=== PATIENT | male | born 1940 | race Caucasian/White ===

== ENCOUNTER 2020-08-06 09:09 | Outpatient (RCR) | payer MEDICARE, SELFPAY | END 2020-08-22 23:59 | disposition home or self-care (01) | LOC: WOUND 09:09 | PROVIDERS: Family Provider Family Medicine; Visit Provider Nurse Practitioner Family | DX: L89.312 Pressure ulcer of right buttock, stage 2 (principal); L89.322 Pressure ulcer of left buttock, stage 2 | CPT/HCPCS: 11042; 11045; 87070; 87077; 87176; 87186; 87205; 99213; G0463 ==

== ENCOUNTER 2020-08-13 09:19 | Outpatient (CLI) | payer MEDICARE, SELFPAY | END 2020-08-13 09:20 | disposition home or self-care (01) | LOC: WOUND 09:21 | PROVIDERS: Family Provider Family Medicine; Visit Provider Nurse Practitioner Family | DX: L89.312 Pressure ulcer of right buttock, stage 2 (principal); L89.322 Pressure ulcer of left buttock, stage 2 | CPT/HCPCS: 11042; 11045 ==

== ENCOUNTER 2020-09-28 15:38 | Outpatient (CLI) | payer MEDICARE, SELFPAY ==
[2020-09-28 19:04] LABS: Add Urine Microscopic? YES; Bilirubin Urine Neg (Negative); Blood Urine 2+ (Negative); Glucose Urine UA Norm (Normal); Ketones Urine Negative (Negative); Leukocyte Esterase Urine 2+ (Negative); Nitrate Urine Positive (Negative); Protein Urine Neg (Negative); Specific Gravity, Urine 1.015 (1.005-1.030); Urine Appearance Cloudy (CLEAR); Urine Color Yellow (Yellow); Urobilinogen Urine Norm (Negative); pH Urine 7 (5-7)
[2020-09-28 19:06] LABS: Bacteria Urine 4+ /hpf; Squamous Epithelial Cell Urine 0-4 /hpf (0-5); WBC Urine 25-40 /hpf (0-5)
[2020-09-28 19:07] LABS: Add Urine Culture? Yes; Amorphous Sediment Urine 1+ /hpf
== END 2020-09-28 15:39 | disposition home or self-care (01) ==
PROVIDERS: Visit Provider Family Medicine
DX: N39.0 Urinary tract infection, site not specified (principal)
CPT/HCPCS: 81001; 87077; 87086; 87186

== ENCOUNTER 2021-05-27 15:41 | Emergency (ER) | payer MEDICARE, SELFPAY ==
[2021-05-27 15:49] VITALS: BP 145/64; PULSE 89; RESP 16; TEMP 36.6; O2SAT 96
[2021-05-27 15:52] VITALS: BP 145/64; PULSE 85; RESP 16; TEMP 36.7; O2SAT 98; BMI 29.0
--- NOTE | 2021-05-27 15:57 | XRR_ITS ---
PROCEDURE INFORMATION: Exam: XR Left Hip Exam date and time: 05/27/2021 3:57 PM Age: 80 years old Clinical indication: Pain and injury or trauma; Fall; Blunt trauma (contusions or hematomas); Hip pain; Left hip; Additional info: Pain/fall TECHNIQUE: Imaging protocol: XR Left hip. Views: 2 or 3 views hip with pelvis when performed. COMPARISON: No relevant prior studies available. FINDINGS: Bones/joints: Mild osteoarthritis of the hip. Soft tissues: Unremarkable. XR/XR hip LT 2-3V wo/w pel* [id number] IMPRESSION: Negative for fracture or dislocation
[2021-05-27 15:59] VITALS: BP 145/64; PULSE 84; RESP 16; O2SAT 98
--- NOTE | 2021-05-27 16:01 | W.ED.FALL ---
Documented by User: Philip Warner DO 05/31/21 06:22 HPI - Fall General: Chief Complaint: Fall Stated Complaint: FALL, BACK PAIN, KNEE PAIN Time Seen by Provider: 05/27/21 15:45 History of Present Illness: HPI Narrative: 80-year-old female presents to the emergency room with complaint of a fall. She was at home and try to get up out of a chair did not really have enough momentum and started to sit back down in the chair but the chair had wheels and then rolled out partially from underneath her she caught it a little bit on the buttocks as she sat down which effectively just because this is chair to shoot out of the way and she fell hard onto her buttocks. She is complaining of pain in her left hip but she was down for about 3-1/2 hours she did not have access to a phone Lifeline eventually she did get to a phone and called for help EMS brought her in she denies striking her head or losing consciousness. MD complaint: fall Onset (ago): hour(s) Fall from: chair Fall witnessed: no Place fall occurred: home Loss of consciousness: None Prolonged down time: yes Symptoms prior to fall: none Context: tripped/slipped (Rolling chair slipped out from behind the patient as she tried to sit down on) Location of injury - extremities: Left: thigh Severity: moderate Quality: sharp Associated symptoms-after fall: Denies abdominal pain, chest pain, confusion, difficulty walking, headache(s), hematuria, lightheadedness, neck pain, numbness, short of breath, vertigo or weakness Review of Systems Const: Denies: fever(s), chills, body aches, change in appetite, fatigue or malaise ENMT: Denies: throat pain, ear or mastoid pain, nasal discharge or nasal congestion Card: Denies: chest pain or lightheadedness Resp: Denies: dyspnea, productive cough or non-productive cough GI: Denies: abdominal pain Musc: Denies: neck pain Skin/Breast: Denies: rash or pruritus Neuro: Denies: headache(s), difficulty walking, vertigo or confusion PFS ED PFSH: Medical History History of broken collarbone History of tibial fracture Urgency incontinence Surgical History History of foot surgery History of hemorrhoidectomy History of tonsillectomy and adenoidectomy Family History Father , IN HIS LATE 40'S Stroke Heart attack Mother , UNKNOWN AGE Cancer COLON Social History Alcohol intake: current Alcohol intake frequency: holidays/special occasions only Marital status: / Current occupational status: disabled History of recent travel: No Physical Exam Const: COMMON NORMALS: no acute distress GENERAL APPEARANCE: cooperative and comfortable ORIENTATION/CONSCIOUSNESS: Yes awake, Yes oriented to person, Yes oriented to place and Yes oriented to time HENMT: COMMON NORMALS: normocephalic, atraumatic and hearing grossly normal bilaterally HEAD & SCALP: normocephalic and atraumatic Neck/C-Spine: COMMON NORMALS: no JVD Resp: COMMON NORMALS: normal respiratory effort, No retractions, No use of accessory muscles and clear to auscultation bilaterally AUSCULTATION: clear to auscultation bilaterally Cardio: COMMON NORMALS: no JVD, regular rate, regular rhythm and No murmurs present (Cardio) RATE: regular rate RHYTHM: regular rhythm GI: COMMON NORMALS: Soft to palpation and No hepatosplenomegaly present AUSCULTATION: Yes normoactive bowel sounds PALPATION: Yes Soft to palpation, No Tenderness to palpation present (GI), No Guarding due to palpation present (GI) and Yes No hepatosplenomegaly present Extremity: COMMON NORMALS: normal to inspection, capillary refill normal, no clubbing, cyanosis or edema and no calf tenderness Neuro: SENSORIUM/ORIENTATION: Yes oriented to person, Yes oriented to place and Yes oriented to time Course Vital Signs: Vital signs: Vital Signs Temperature 98.0 F 05/27/21 15:52 Pulse Rate 68 05/28/21 08:46 Respiratory Rate 18 05/28/21 08:46 Blood Pressure 156/73 05/28/21 08:46 Pulse Oximetry 94 05/28/21 08:46 MDM - Fall MDM Narrative: Medical decision making narrative: Lab imaging and EKGs reviewed. Patient with mechanical fall there is no acute fracture. She does have elevated AST and some moderate thrombocytopenia. She does also have an acute UTI. We will go ahead and discharge her home is given Rocephin here started on Macrobid. No indication for admission at this time. Follow-up with your primary care doctor. Lab Data: Labs: Lab Results 05/27/21 05/27/21 05/27/21 16:23 16:35 16:35 WBC 7.5 10^3/uL 10^3/ uL (4.0-10.0) RBC 3.58 10^6/uL L 10 ^6/uL (4.1-5.3) Hgb 12.3 g/dL g/dL (11.7-16.6) Hct 37.2 % L % (42.0-52.0) MCV 103.9 fl H fl (80-94) MCH 34.4 pg H pg (28.0-34.0) MCHC 33.1 g/dL g/dL (30.0-36.0) RDW 14.8 % % (12.1-15.1) Plt Count 108 10^3/cmm L 10 ^3/cmm (130-400) MPV 9.7 fL fL (7.4-10.4) Neut % (Auto) 76.7 % % Lymph % (Auto) 8.3 % % Mcdonough % (Auto) 11.3 % % Eos % (Auto) 2.6 % % Baso % (Auto) 0.3 % % Neut # (Auto) 5.72 10^3/uL 10^3 /uL (1.8-7.7) Lymph # (Auto) 0.6 10^3/uL L 10^ 3/uL (0.8-4.8) Mcdonough # (Auto) 0.8 10^3/uL 10^3/ uL (0.2-0.9) Eos # (Auto) 0.2 10^3/uL 10^3/ uL (0.0-0.8) Baso # (Auto) 0.0 10^3/uL 10^3/ uL (0.0-0.1) Nucleated RBC % (a uto) 0 % % Nucleated RBCs # 0.0 /100WBC /100W BC Sodium 139 mmol/L mmol/L (136-145) Potassium 3.6 mmol/L mmol/L (3.5-5.1) Chloride 106 mmol/L mmol/L (98-107) Carbon Dioxide 22 mmol/L mmol/L (22-29) Anion Gap 14.6 (5-19) BUN 13 mg/dL mg/dL (8-23) Creatinine 0.4 mg/dL L mg/dL (0.7-1.2) GFR Calculation Not Reportable Glucose 122 mg/dL H mg/dL (65-115) Calculated Osmolal ity 289 mOsm/kg mOsm/ kg (285-295) Calcium 8.3 mg/dL L mg/dL (8.5-10.5) Total Bilirubin 1.7 mg/dL H mg/dL (0.15-1.2) AST 42 U/L H U/L (0-40) ALT 18 U/L U/L (0-41) Alkaline Phosphata se 151 IU/L H IU/L (40-130) Total Protein 4.6 g/dL L g/dL (6.6-8.7) Albumin 3.0 g/dL L g/dL (3.5-5.2) Globulin 1.6 g/dL g/dL (1.3-4.6) Lipase Urine Color Yellow (Yellow) Urine Appearance Clear (CLEAR) Urine pH 7 (5-7) Ur Specific Gravit y 1.020 (1.005-1.030) Urine Protein Neg (Negative) Urine Glucose (UA) Norm (Normal) Urine Ketones Negative (Negative) Urine Blood Neg (Negative) Urine Nitrate Positive H (Negative) Urine Bilirubin Neg (Negative) Urine Urobilinogen Norm mg/dL mg/dL (Negative) Ur Leukocyte Aniyah ase Trace H (Negative) Urine RBC 0-4 /hpf H /hpf (0-2) Urine WBC 15-25 /hpf H /hpf (0-5) Ur Squamous Epith Cells None /hpf /hpf (0-5) Amorphous Sediment Not Reportable Urine Bacteria 3+ /hpf H /hpf (NONE) 05/27/21 16:35 WBC RBC Hgb Hct MCV MCH MCHC RDW Plt Count MPV Neut % (Auto) Lymph % (Auto) Mcdonough % (Auto) Eos % (Auto) Baso % (Auto) Neut # (Auto) Lymph # (Auto) Mcdonough # (Auto) Eos # (Auto) Baso # (Auto) Nucleated RBC % (a uto) Nucleated RBCs # Sodium Potassium Chloride Carbon Dioxide Anion Gap BUN Creatinine GFR Calculation Glucose Calculated Osmolal ity Calcium Total Bilirubin AST ALT Alkaline Phosphata se Total Protein Albumin Globulin Lipase 19 U/L U/L (13-60) Urine Color Urine Appearance Urine pH Ur Specific Gravit y Urine Protein Urine Glucose (UA) Urine Ketones Urine Blood Urine Nitrate Urine Bilirubin Urine Urobilinogen Ur Leukocyte Aniyah ase Urine RBC Urine WBC Ur Squamous Epith Cells Amorphous Sediment Urine Bacteria Discharge Plan Discharge Patient Disposition: Home Clinical Impression: Fall, Thrombocytopenia, Elevated AST (SGOT), Elevated bilirubin, Acute UTI Condition: Stable Prescriptions: New nitrofurantoin macrocrystal 100 mg capsule 100 mg PO BID 7 Days Qty: 14 RF: 0 No Action ketoconazole 2 % cream 1 applic topical DAILY RF: 0 cetirizine [Zyrtec] 10 mg tablet 10 mg PO DAILY PRN (Reason: Allergy Symptoms) RF: 0 ibuprofen [Advil] 200 mg tablet 200 mg PO BID RF: 0 multivitamin Tablet 1 tab PO DAILY RF: 0 ascorbic acid (vitamin C) 1,000 mg tablet 1 g PO DAILY RF: 0 magnesium oxide 400 mg (241.3 mg magnesium) tablet 400 mg PO DAILY RF: 0 naproxen sodium [Aleve] 220 mg tablet 220 mg PO BID PRN (Reason: Pain) RF: 0 Lactobacillus acidophilus [Acidophilus] Capsule 10 mg PO DAILY RF: 0 famotidine 20 mg tablet 20 mg PO DAILY RF: 0 oxybutynin chloride 10 mg tablet extended release 24hr 10 mg PO DAILY Qty: 30 RF: 6 betamethasone dipropionate 0.05 % cream 1 applic topical DAILY PRN (Reason: Rash) RF: 0 aspirin [Adult Aspirin Regimen] 81 mg tablet,delayed release (DR/EC) 81 mg PO DAILY RF: 0 pentoxifylline 400 mg tablet extended release 400 mg PO BID RF: 0 hydrochlorothiazide 25 mg tablet 25 mg PO DAILY RF: 0 Discharge Orders: Discharge ED (Routine); Ordered 05/27/21 Ordered By: Eder Whitehead Referrals: Emory Vaughan MD [Primary Care Provider] - Discharge Diet: Usual diet Discharge Activity: Resume usual activity Patient Instructions: Fall Prevention for Older Adults (ED), Contusion in Adults (ED), Urinary Tract Infection in Older Adults (ED), Opioid Safety Activity Restrictions/Additional Instructions: Thank you for visiting the emergency department. You were seen and evaluated after fall. No acute fracture was identified. Your pain is likely related to bruising and strain. You were incidentally noted to have a urinary tract infection which will be treated with antibiotics. Please follow-up with your primary care provider. Return to the emergency department for uncontrolled pain, inability to ambulate, repeated falls, chest pain, shortness of breath, or anything else that you are concerned about and feel needs emergency department evaluation. Sign Out Sign Out Data: Patient Sign Out occurred on 05/27/21 at 18:10. Patient's care was discussed, and care was transferred from to Eder Whitehead MD. Post-Handoff Eval: Patient care handoff received from Dr. Warner pending completion of evaluation. Labs reviewed, no significant abnormality to explain patient's symptoms. Urinalysis concerning for urinary tract infection which will be treated. Imaging negative for acute fracture. I discussed the results of ED evaluation with the patient. Challenging situation as the patient ambulates with a walker and lives at home alone. She was able to ambulate with a walker however did require some assistance. Subsequently she reported being unable to ambulate. staff physical therapy assistant discussed SNF placement with the patient which she seemed opposed to. The patient does not have a diagnosis that would warrant 3 midnights for inpatient to SNF placement. fitting room supervisor involved in the case. Given that the patient apparently does not have a ride home and family is unavailable she will be kept in the emergency department pending ride home and evaluation/assistance from case management/social work. Eder Whitehead MD Emergency Medicine Coding Level of Care Code ED Humanities Department Chair for Chg Fwd Exam Detailed Documented by User: Eder Whitehead MD 05/30/21 21:35 HPI - Fall General: Chief Complaint: Fall Stated Complaint: FALL, BACK PAIN, KNEE PAIN Time Seen by Provider: 05/27/21 15:45 PFSH ED PFSH: Medical History History of broken collarbone History of tibial fracture Urgency incontinence Surgical History History of foot surgery History of hemorrhoidectomy History of tonsillectomy and adenoidectomy Family History Father , IN HIS LATE 40'S Stroke Heart attack Mother , UNKNOWN AGE Cancer COLON Social History Alcohol intake: current Alcohol intake frequency: holidays/special occasions only Marital status: / Current occupational status: disabled History of recent travel: No Course Vital Signs: Vital signs: Vital Signs Temperature 98.0 F 05/27/21 15:52 Pulse Rate 68 05/28/21 08:46 Respiratory Rate 18 05/28/21 08:46 Blood Pressure 156/73 05/28/21 08:46 Pulse Oximetry 94 05/28/21 08:46 MDM - Fall Lab Data: Labs: Lab Results 05/27/21 05/27/21 05/27/21 16:23 16:35 16:35 WBC 7.5 10^3/uL 10^3/ uL (4.0-10.0) RBC 3.58 10^6/uL L 10 ^6/uL (4.1-5.3) Hgb 12.3 g/dL g/dL (11.7-16.6) Hct 37.2 % L % (42.0-52.0) MCV 103.9 fl H fl (80-94) MCH 34.4 pg H pg (28.0-34.0) MCHC 33.1 g/dL g/dL (30.0-36.0) RDW 14.8 % % (12.1-15.1) Plt Count 108 10^3/cmm L 10 ^3/cmm (130-400) MPV 9.7 fL fL (7.4-10.4) Neut % (Auto) 76.7 % % Lymph % (Auto) 8.3 % % Mcdonough % (Auto) 11.3 % % Eos % (Auto) 2.6 % % Baso % (Auto) 0.3 % % Neut # (Auto) 5.72 10^3/uL 10^3 /uL (1.8-7.7) Lymph # (Auto) 0.6 10^3/uL L 10^ 3/uL (0.8-4.8) Mcdonough # (Auto) 0.8 10^3/uL 10^3/ uL (0.2-0.9) Eos # (Auto) 0.2 10^3/uL 10^3/ uL (0.0-0.8) Baso # (Auto) 0.0 10^3/uL 10^3/ uL (0.0-0.1) Nucleated RBC % (a uto) 0 % % Nucleated RBCs # 0.0 /100WBC /100W BC Sodium 139 mmol/L mmol/L (136-145) Potassium 3.6 mmol/L mmol/L (3.5-5.1) Chloride 106 mmol/L mmol/L (98-107) Carbon Dioxide 22 mmol/L mmol/L (22-29) Anion Gap 14.6 (5-19) BUN 13 mg/dL mg/dL (8-23) Creatinine 0.4 mg/dL L mg/dL (0.7-1.2) GFR Calculation Not Reportable Glucose 122 mg/dL H mg/dL (65-115) Calculated Osmolal ity 289 mOsm/kg mOsm/ kg (285-295) Calcium 8.3 mg/dL L mg/dL (8.5-10.5) Total Bilirubin 1.7 mg/dL H mg/dL (0.15-1.2) AST 42 U/L H U/L (0-40) ALT 18 U/L U/L (0-41) Alkaline Phosphata se 151 IU/L H IU/L (40-130) Total Protein 4.6 g/dL L g/dL (6.6-8.7) Albumin 3.0 g/dL L g/dL (3.5-5.2) Globulin 1.6 g/dL g/dL (1.3-4.6) Lipase Urine Color Yellow (Yellow) Urine Appearance Clear (CLEAR) Urine pH 7 (5-7) Ur Specific Gravit y 1.020 (1.005-1.030) Urine Protein Neg (Negative) Urine Glucose (UA) Norm (Normal) Urine Ketones Negative (Negative) Urine Blood Neg (Negative) Urine Nitrate Positive H (Negative) Urine Bilirubin Neg (Negative) Urine Urobilinogen Norm mg/dL mg/dL (Negative) Ur Leukocyte Aniyah ase Trace H (Negative) Urine RBC 0-4 /hpf H /hpf (0-2) Urine WBC 15-25 /hpf H /hpf (0-5) Ur Squamous Epith Cells None /hpf /hpf (0-5) Amorphous Sediment Not Reportable Urine Bacteria 3+ /hpf H /hpf (NONE) 05/27/21 16:35 WBC RBC Hgb Hct MCV MCH MCHC RDW Plt Count MPV Neut % (Auto) Lymph % (Auto) Mcdonough % (Auto) Eos % (Auto) Baso % (Auto) Neut # (Auto) Lymph # (Auto) Mcdonough # (Auto) Eos # (Auto) Baso # (Auto) Nucleated RBC % (a uto) Nucleated RBCs # Sodium Potassium Chloride Carbon Dioxide Anion Gap BUN Creatinine GFR Calculation Glucose Calculated Osmolal ity Calcium Total Bilirubin AST ALT Alkaline Phosphata se Total Protein Albumin Globulin Lipase 19 U/L U/L (13-60) Urine Color Urine Appearance Urine pH Ur Specific Gravit y Urine Protein Urine Glucose (UA) Urine Ketones Urine Blood Urine Nitrate Urine Bilirubin Urine Urobilinogen Ur Leukocyte Aniyah ase Urine RBC Urine WBC Ur Squamous Epith Cells Amorphous Sediment Urine Bacteria Discharge Plan Discharge Patient Disposition: Home Clinical Impression: Fall, Thrombocytopenia, Elevated AST (SGOT), Elevated bilirubin, Acute UTI Condition: Stable Prescriptions: New nitrofurantoin macrocrystal 100 mg capsule 100 mg PO BID 7 Days Qty: 14 RF: 0 No Action ketoconazole 2 % cream 1 applic topical DAILY RF: 0 cetirizine [Zyrtec] 10 mg tablet 10 mg PO DAILY PRN (Reason: Allergy Symptoms) RF: 0 ibuprofen [Advil] 200 mg tablet 200 mg PO BID RF: 0 multivitamin Tablet 1 tab PO DAILY RF: 0 ascorbic acid (vitamin C) 1,000 mg tablet 1 g PO DAILY RF: 0 magnesium oxide 400 mg (241.3 mg magnesium) tablet 400 mg PO DAILY RF: 0 naproxen sodium [Aleve] 220 mg tablet 220 mg PO BID PRN (Reason: Pain) RF: 0 Lactobacillus acidophilus [Acidophilus] Capsule 10 mg PO DAILY RF: 0 famotidine 20 mg tablet 20 mg PO DAILY RF: 0 oxybutynin chloride 10 mg tablet extended release 24hr 10 mg PO DAILY Qty: 30 RF: 6 betamethasone dipropionate 0.05 % cream 1 applic topical DAILY PRN (Reason: Rash) RF: 0 aspirin [Adult Aspirin Regimen] 81 mg tablet,delayed release (DR/EC) 81 mg PO DAILY RF: 0 pentoxifylline 400 mg tablet extended release 400 mg PO BID RF: 0 hydrochlorothiazide 25 mg tablet 25 mg PO DAILY RF: 0 Discharge Orders: Discharge ED (Routine); Ordered 05/27/21 Ordered By: Eder Whitehead Referrals: Emory aVughan MD [Primary Care Provider] - Discharge Diet: Usual diet Discharge Activity: Resume usual activity Patient Instructions: Fall Prevention for Older Adults (ED), Contusion in Adults (ED), Urinary Tract Infection in Older Adults (ED), Opioid Safety Activity Restrictions/Additional Instructions: Thank you for visiting the emergency department. You were seen and evaluated after fall. No acute fracture was identified. Your pain is likely related to bruising and strain. You were incidentally noted to have a urinary tract infection which will be treated with antibiotics. Please follow-up with your primary care provider. Return to the emergency department for uncontrolled pain, inability to ambulate, repeated falls, chest pain, shortness of breath, or anything else that you are concerned about and feel needs emergency department evaluation. Sign Out Sign Out Data: Patient Sign Out occurred on 05/27/21 at 18:10. Patient's care was discussed, and care was transferred from to Eder Whitehead MD. Post-Handoff Eval: Patient care handoff received from Dr. Warner pending completion of evaluation. Labs reviewed, no significant abnormality to explain patient's symptoms. Urinalysis concerning for urinary tract infection which will be treated. Imaging negative for acute fracture. I discussed the results of ED evaluation with the patient. Challenging situation as the patient ambulates with a walker and lives at home alone. She was able to ambulate with a walker however did require some assistance. Subsequently she reported being unable to ambulate. staff physical therapy assistant discussed SNF placement with the patient which she seemed opposed to. The patient does not have a diagnosis that would warrant 3 midnights for inpatient to SNF placement. fitting room supervisor involved in the case. Given that the patient apparently does not have a ride home and family is unavailable she will be kept in the emergency department pending ride home and evaluation/assistance from case management/social work. Eder Whitehead MD Emergency Medicine Coding Level of Care Code ED Humanities Department Chair for Chg Fwd Exam Detailed
[2021-05-27] MEDS: ondansetron 2 mg/ML SDV 2 mL 4 MG IVP (16:12)
[2021-05-27] MEDS: morphine 4 mg/mL SDV 1 mL IVP (16:12)
--- NOTE | 2021-05-27 16:48 | CTR_ITS ---
PROCEDURE INFORMATION: Exam: CT Left Lower Extremity Without Contrast, Hip Exam date and time: 05/27/2021 4:48 PM Age: 80 years old Clinical indication: Injury or trauma; Fall; Blunt trauma; Hip; Left; Additional info: Hip pain after fall TECHNIQUE: Imaging protocol: CT of the Left lower extremity without contrast was performed. Exam focused on the hip. Radiation optimization: All CT scans at this facility use at least one of these dose optimization techniques: automated exposure control; mA and/or kV adjustment per patient size (includes targeted exams where dose is matched to clinical indication); or iterative reconstruction. COMPARISON: CR XR hip LT 2-3V wo/w pel* [id number] 05/27/2021 4:18 PM RADIATION DOSE METRICS: Total DLP (mGy-cm): 2414.33 FINDINGS: Tubes, catheters and devices: Iqbal catheter in the urinary bladder with some air presumed iatrogenic. Bones/joints: Normal. No acute fracture or dislocation. Soft tissues: Normal. Bowel: Diverticulosis without diverticulitis. CT/CT hip LT wo con* [id number] IMPRESSION: 1. Negative for fracture or dislocation. 2. Iqbal catheter in the urinary bladder with some air presumed iatrogenic. 3. Diverticulosis without diverticulitis.
--- NOTE | 2021-05-27 16:49 | XRR_ITS ---
PROCEDURE INFORMATION: Exam: XR Left Knee Exam date and time: 05/27/2021 4:49 PM Age: 80 years old Clinical indication: Pain; Knee; Left TECHNIQUE: Imaging protocol: XR Left knee. Views: 3 views. COMPARISON: No relevant prior studies available. FINDINGS: Bones/joints: Severe tricompartmental osteoarthritis of the knee. Soft tissues: Scattered vascular calcifications. XR/XR knee LT 3V* [id number] IMPRESSION: 1. Severe tricompartmental osteoarthritis of the knee. 2. Scattered vascular calcifications.
[2021-05-27 16:57] LABS: Basophils % 0.3 %; Eosinophils # 0.2 10^3/uL (0.0-0.8); Eosinophils % 2.6 %; Hematocrit 37.2 % (42.0-52.0); Hemoglobin 12.3 g/dL (11.7-16.6); Lymphocytes # 0.6 10^3/uL (0.8-4.8); Lymphocytes % 8.3 %; Mean Corpuscular HGB Conc 33.1 g/dL (30.0-36.0); Mean Corpuscular Hemoglobin 34.4 pg (28.0-34.0); Mean Corpuscular Volume 103.9 fl (80-94); Mean Platelet Volume 9.7 fL (7.4-10.4); Monocytes # 0.8 10^3/uL (0.2-0.9); Monocytes % 11.3 %; Neutrophils # 5.72 10^3/uL (1.8-7.7); Neutrophils % 76.7 %; Nucleated Red Blood Cells % 0 %; Platelet Count 108 10^3/cmm (130-400); Red Blood Count 3.58 10^6/uL (4.1-5.3); Red Cell Distribution Width 14.8 % (12.1-15.1); White Blood Count 7.5 10^3/uL (4.0-10.0)
[2021-05-27 17:17] LABS: Alanine Aminotransferase 18 U/L (0-41); Alkaline Phosphatase 151 IU/L (40-130); Blood Urea Nitrogen 13 mg/dL (8-23); Calcium 8.3 mg/dL (8.5-10.5); Carbon Dioxide 22 mmol/L (22-29); Chloride 106 mmol/L (98-107); Globulin 1.6 g/dL (1.3-4.6); Glucose 122 mg/dL (65-115); Osmolality Calculated 289 mOsm/kg (285-295); Sodium 139 mmol/L (136-145); Total Bilirubin 1.7 mg/dL (0.15-1.2); Total Protein 4.6 g/dL (6.6-8.7)
[2021-05-27 17:18] LABS: Anion Gap 14.6 (5-19); Aspartate Amino Transferase 42 U/L (0-40); Potassium 3.6 mmol/L (3.5-5.1)
[2021-05-27 17:47] LABS: Add Urine Microscopic? YES; Bilirubin Urine Neg (Negative); Blood Urine Neg (Negative); Glucose Urine UA Norm (Normal); Ketones Urine Negative (Negative); Leukocyte Esterase Urine Trace (Negative); Nitrate Urine Positive (Negative); Protein Urine Neg (Negative); Urine Appearance Clear (CLEAR); Urine Color Yellow (Yellow); Urobilinogen Urine Norm (Negative); pH Urine 7 (5-7)
--- NOTE | 2021-05-27 17:50 | XRR_ITS ---
PROCEDURE INFORMATION: Exam: XR Pelvis Exam date and time: 05/27/2021 5:50 PM Age: 80 years old Clinical indication: Pelvic pain; Additional info: Pain after fall TECHNIQUE: Imaging protocol: XR pelvis. Views: 1 or 2 view. COMPARISON: CR XR hip LT 2-3V wo/w pel* [id number] 05/27/2021 4:18 PM FINDINGS: Bones/joints: Lumbar spine degenerative disc space disease. Mild osteoarthritis of the hips bilaterally. Soft tissues: Unremarkable. XR/XR pelvis 1-2V* [id number] IMPRESSION: 1. Negative for fracture or dislocation. 2. Lumbar spine degenerative disc space disease. 3. Mild osteoarthritis of the hips bilaterally.
--- NOTE | 2021-05-27 17:50 | USR_ITS ---
PROCEDURE INFORMATION: Exam: US Abdomen, Limited; Right Upper Quadrant Exam date and time: 05/27/2021 5:50 PM Age: 80 years old Clinical indication: Abnormal findings; Abnormal lab test; Elevated liver enzymes; Additional info: Elevated t bili TECHNIQUE: Imaging protocol: US abdomen. Real time ultrasound with image documentation. Limited exam focused on the right upper quadrant. COMPARISON: CT hip LT wo con* [id number] 05/27/2021 5:44 PM FINDINGS: Liver: Hepatic steatosis. Gallbladder: Cholelithiasis. Common bile duct: Normal. No stones. No dilation. Pancreas: Visualized pancreas is unremarkable. Right kidney: Normal. No mass. No hydronephrosis. US/US gall bladder [id number] IMPRESSION: 1. Cholelithiasis, negative for cholecystitis. 2. Hepatic steatosis
[2021-05-27 17:54] LABS: Add Urine Culture? Yes; Bacteria Urine 3+ /hpf; RBC Urine 0-4 /hpf (0-2); WBC Urine 15-25 /hpf (0-5)
[2021-05-27 18:09] LABS: Lipase 19 U/L (13-60)
[2021-05-27 18:15] VITALS: BP 174/86; PULSE 83; RESP 15; O2SAT 96
[2021-05-27 19:21] VITALS: BP 158/74; PULSE 84; RESP 18; O2SAT 98
[2021-05-27] MEDS: ketorolac 30 mg/mL INJ 15 MG IVP (20:30)
[2021-05-27] MEDS: acetaminophen 500 mg Tablet 1000 MG PO (20:48)
[2021-05-27 21:11] VITALS: BP 160/72; RESP 22; O2SAT 100
[2021-05-27] MEDS: nitrofurantoin SR (BID) 100 mg Capsule PO (21:30)
[2021-05-28 03:54] VITALS: BP 156/73; PULSE 68; RESP 18; O2SAT 94
[2021-05-28 08:46] VITALS: BP 156/73; PULSE 68; RESP 18; O2SAT 94
--- NOTE | 2021-05-30 12:54 | DCPLANNER ---
late entry - recycling program manager had message to speak with patient about shelter facility placement. recycling program manager was unable to speak with anyone at this time.
== END 2021-05-28 08:46 | disposition home or self-care (01) ==
PROVIDERS: Family Medicine; Emergency Provider Emergency Medicine; PCP Family Medicine
DX: N39.0 Urinary tract infection, site not specified (principal); R74.01 Elevation of levels of liver transaminase levels; D69.6 Thrombocytopenia, unspecified; R79.89 Other specified abnormal findings of blood chemistry; Z79.82 Long term (current) use of aspirin
CPT/HCPCS: 72170; 73502; 73562; 73700; 76705; 80053; 81001; 83690; 85025; 87077; 87086; 87186; 96374; 96375; 99284; J1885; J2270; J2405

== ENCOUNTER 2021-05-30 12:10 | Emergency (ER) | payer MEDICARE, SELFPAY ==
[2021-05-30 12:22] VITALS: BP 185/75; PULSE 68; RESP 20; TEMP 37.1; O2SAT 95; BMI 47.0
--- NOTE | 2021-05-30 12:38 | W.ED.WOUNDLC ---
HPI - Wound/Laceration General: Chief Complaint: Wound/Laceration Stated Complaint: PRESSURE WOUND ON BUTTOCK Time Seen by Provider: 05/30/21 12:18 History of Present Illness: HPI narrative: wound present on bottom x one year Place: home Review of Systems General: Reports: 10 or more systems reviewed and unremarkable except in HPI and below [place]/Lymph: Reports: other (wound on bottom ) PFS ED PFSH: Medical History History of broken collarbone History of tibial fracture Urgency incontinence Surgical History History of foot surgery History of hemorrhoidectomy History of tonsillectomy and adenoidectomy Family History Father , IN HIS LATE 40'S Stroke Heart attack Mother , UNKNOWN AGE Cancer COLON Social History Alcohol intake: current Alcohol intake frequency: holidays/special occasions only Marital status: / Current occupational status: disabled History of recent travel: No Physical Exam Const: COMMON NORMALS: no acute distress, patient oriented x3, no limitations and alert GENERAL APPEARANCE: cooperative and comfortable ORIENTATION/CONSCIOUSNESS: Yes awake, Yes oriented to person, Yes oriented to place and Yes oriented to time HENMT: COMMON NORMALS: normocephalic, atraumatic, external ears normal, EAC's normal, TM's normal bilaterally and Normal external nose present HEAD & SCALP: normal to inspection, normocephalic and atraumatic FACE & SINUS: normal facial exam, sinuses nontender and face symmetric NOSE: Normal external nose present, Normal nares present and No nasal discharge present EXTERNAL EAR: Yes external ears normal EXTERNAL AUDITORY CANAL: EAC's normal TYMPANIC MEMBRANE: TM's normal bilaterally MOUTH: Normal oral and palatal mucosa present, lip normal and tongue normal THROAT: posterior oropharynx normal, tonsils normal and uvula midline Eye: COMMON NORMALS: Equal, round and reactive pupils present, EOMs intact bilaterally and conjunctivae normal GENERAL EYE: appearance normal, both eyes and all related structures and normal light reflex EYELID: eyelids normal CONJUNCTIVA: Yes conjunctivae normal PUPIL: Yes Equal, round and reactive pupils present EOM: Yes EOM abnormal DIRECT OPHTHALMOSCOPY: Yes normal light reflex Neck/C-Spine: COMMON NORMALS: full ROM, no lymphadenopathy, supple, no meningeal signs, no JVD and Thyroid normal GENERAL: Yes normal visual inspection THYROID: Thyroid normal CERVICAL SPINE: Yes cervical ROM normal and Yes normal cervical lordosis Lymph: LYMPHATIC: no lymphadenopathy noted Chest: COMMONS NORMALS: normal inspection of the chest and normal palpation of entire chest wall Resp: COMMON NORMALS: normal respiratory effort, No retractions and clear to auscultation bilaterally AUSCULTATION: clear to auscultation bilaterally Cardio: COMMON NORMALS: no JVD, regular rate, regular rhythm, S1 normal heart sound present, S2 normal heart sound present, No gallops present (Cardio), No clicks present (Cardio), No murmurs present (Cardio), No rub (Cardio) and Peripheral pulses 2+ throughout RATE: regular rate RHYTHM: regular rhythm HEART SOUNDS: S1 normal heart sound present and S2 normal heart sound present PERIPHERAL PULSES: Peripheral pulses 2+ throughout GI: COMMON NORMALS: Normal to inspection, nondistended, normoactive bowel sounds present, Soft to palpation, non-tender and no masses PALPATION: Yes Soft to palpation : COMMON NORMALS: Yes no CVA tenderness and Yes normal external appearance BLADDER/KIDNEY EXAM: Yes no CVA tenderness Back/Pelvis: COMMON NORMALS: no CVA tenderness, thoracic and lumbar spine normal to inspection, no thoracic nor lumbar tenderness and thoraco-lumbar ROM normal OTHER: wound note to bottom-present x 1 year Extremity: COMMON NORMALS: normal to inspection, full ROM, capillary refill normal, no joint enlargement, no clubbing, cyanosis or edema, no calf tenderness and no pedal edema GENERAL: Yes normal exam except as noted Neuro: COMMON NORMALS: patient oriented x3, moves all extremities and no focal motor deficits SENSORIUM/ORIENTATION: Yes alert, Yes oriented to person, Yes oriented to place and Yes oriented to time MENINGEAL SIGNS: Yes no meningeal signs GAIT: Yes Unable to assess gait Psych: COMMON NORMALS: mental status grossly normal, Normal thought process present, cooperative, normal affect, speech normal and activity/motor behavior normal SPEECH: Yes normal speech THOUGHT PROCESS: Normal thought process present Skin: COMMON NORMALS: no rashes or lesions noted, no wounds and turgor normal GENERAL SKIN EXAM: no rashes or lesions noted and turgor normal Course ED course: Pt presents to ER for wound on bottom that has been present x 1 year. She is actually to be admitted to [facility] and a ride has been situated to do so. Pt will follow up for further wound care with [facility] wound center or in house wound care as seen fit per pt PCP. Vital Signs: Vital signs: Vital Signs Temperature 98.8 F 05/30/21 12:22 Pulse Rate 68 05/30/21 12:22 Respiratory Rate 20 H 05/30/21 12:22 Blood Pressure 185/75 05/30/21 12:22 Pulse Oximetry 95 05/30/21 12:22 Discharge Plan Discharge Patient Disposition: [facility] Clinical Impression: Generalized muscle weakness, Pressure ulcer, Pressure ulcer of buttock Condition: Stable Discharge Orders: Discharge ED (Routine); Ordered 05/30/21 Ordered By: Mis Leigh Referrals: Emory Vaughan MD [Primary Care Provider] - Discharge Diet: Usual diet Discharge Activity: Limit activity as instructed Activity Restrictions/Additional Instructions: Dakin's 0.125% wet to dry BID to wound Offload pressure; reposition every 2 hours May follow up with [facility] Wound Care [phone] or inpatient wound care with [facility] Coding Level of Care Code ED Internal Control Specialist for Lala Avendano
[2021-05-30 13:31] VITALS: BP 185/75; PULSE 68; RESP 20; TEMP 37.1; O2SAT 95
--- NOTE | 2021-05-30 14:36 | DCPLANNER ---
Lynn from [facility] called leather case finisher informing leather case finisher that patient was being brought to the ER, and that [facility] was working on accepting patient. field human resources manager called Lynn at [facility], was told that the facility was working on patients paperwork and it looked like the facility would accept patient, Lynn would call leather case finisher when all of the paperwork was done. field human resources manager updated nurse and ER physician that the [facility] was working on paperwork for admittance, patient would be private pay. Lynn called leather case finisher stating that patient was accepted, nurse would need to call report to daniele dalal. field human resources manager informed nurse and physician that [facility] was accepted to the [facility].
== END 2021-05-30 13:40 ==
PROVIDERS: Emergency Provider Nurse Practitioner Family; PCP Family Medicine
DX: L89.309 Pressure ulcer of unspecified buttock, unspecified stage (principal); R53.1 Weakness
CPT/HCPCS: 99282

== ENCOUNTER 2022-04-21 13:38 | Outpatient (CLI) | payer MEDICARE, SELFPAY ==
[2022-04-21 13:57] LABS: Basophils % 0.3 %; Eosinophils # 0.1 10^3/uL (0.0-0.8); Eosinophils % 0.6 %; Hematocrit 34.5 % (37.0-47.0); Hemoglobin 11.2 g/dL (11.5-15.3); Lymphocytes # 1.2 10^3/uL (0.8-4.8); Lymphocytes % 11.9 %; Mean Corpuscular HGB Conc 32.5 g/dL (30.0-36.0); Mean Corpuscular Hemoglobin 32.3 pg (28.0-34.0); Mean Corpuscular Volume 99.4 fl (81-99); Mean Platelet Volume 9.3 fL (7.4-10.4); Monocytes # 1.1 10^3/uL (0.2-0.9); Neutrophils # 7.21 10^3/uL (1.8-7.7); Neutrophils % 74.5 %; Nucleated Red Blood Cells % 0 %; Platelet Count 141 10^3/cmm (130-400); Red Blood Count 3.47 10^6/uL (4.1-5.3); Red Cell Distribution Width 16.1 % (12.1-15.1); White Blood Count 9.7 10^3/uL (4.0-10.0)
[2022-04-21 14:29] LABS: Anion Gap 9.4 (5-19); Blood Urea Nitrogen 23 mg/dL (8-23); Calcium 8.3 mg/dL (8.5-10.5); Carbon Dioxide 30 mmol/L (22-29); Chloride 98 mmol/L (98-107); Glucose 89 mg/dL (65-115); NT Pro B Type Natriuretic Pept 3741 pg/mL (0-450); Osmolality Calculated 279 mOsm/kg (285-295); Potassium 4.4 mmol/L (3.5-5.1); Sodium 133 mmol/L (136-145)
[2022-04-22 12:11] LABS: Influenza A Not Detected (NOT DETECT); Influenza A H1 Not Detected (NOT DETECT); Influenza A H1-2009 Not Detected (NOT DETECT); Influenza A H3 Not Detected (NOT DETECT); Influenza B Not Detected (NOT DETECT); Results from Genmark
== END 2022-04-21 13:39 | disposition home or self-care (01) ==
LOC: LAB 13:40
PROVIDERS: PCP Family Medicine; Visit Provider Internal Medicine
DX: J81.0 Acute pulmonary edema (principal)
CPT/HCPCS: 80048; 83880; 85025; 87631

== ENCOUNTER 2022-04-22 12:08 | Inpatient (IN) | payer MEDICARE, SELFPAY ==
[2022-04-22] VITALS (55 sets, daily range): BP systolic 112–171; BP diastolic 67–99; PULSE 47–120; RESP 15–30; TEMP 36.7–37.3; O2SAT 90–99; BMI 25.0
--- NOTE | 2022-04-22 12:16 | XRR_ITS ---
PROCEDURE INFORMATION: Exam: XR Chest Exam date and time: 04/22/2022 1:28 PM Age: 81 years old Clinical indication: Patient HX: Shortness of breath. PT unable to give history TECHNIQUE: Imaging protocol: Radiologic exam of the chest. Views: 1 view. COMPARISON: No relevant prior studies available. FINDINGS: Lungs: There are extensive diffuse infiltrates in the right lung especially in the upper lobe. There is also prominent infiltration of the left lung base. Pleural spaces: Unremarkable. No pleural effusion. No pneumothorax. Heart/Mediastinum: Unremarkable. No cardiomegaly. Bones/joints: Unremarkable. XR/XR chest 1V portable [id number] IMPRESSION: Bilateral pneumonia especially prominent in the right lung.
[2022-04-22] MEDS: sodium chloride 0.9% 1,000 ML 999 ML IV (12:32)
[2022-04-22 12:40] LABS: Glucose Point of Care 80 mg/dL (70-110)
[2022-04-22 12:53] LABS: Basophils % 0.3 %; Eosinophils % 0.1 %; Hematocrit 39.3 % (37.0-47.0); Hemoglobin 13.2 g/dL (11.5-15.3); Lymphocytes # 0.7 10^3/uL (0.8-4.8); Lymphocytes % 4.7 %; Mean Corpuscular HGB Conc 33.6 g/dL (30.0-36.0); Mean Corpuscular Volume 98.3 fl (81-99); Mean Platelet Volume 9.1 fL (7.4-10.4); Monocytes % 7.2 %; Neutrophils # 12.25 10^3/uL (1.8-7.7); Neutrophils % 85.4 %; Nucleated Red Blood Cells % 0 %; Platelet Count 135 10^3/cmm (130-400); Red Cell Distribution Width 16.1 % (12.1-15.1); White Blood Count 14.3 10^3/uL (4.0-10.0)
[2022-04-22 13:12] LABS: Influenza A by IFA negative (Negative); Influenza B by IFA negative (Negative)
[2022-04-22 13:21] LABS: Alanine Aminotransferase 12 U/L (0-33); Albumin Level 2.5 g/dL (3.5-5.2); Alkaline Phosphatase 188 U/L (35-105); Anion Gap 13.4 (5-19); Aspartate Amino Transferase 45 U/L (0-32); Blood Urea Nitrogen 25 mg/dL (8-23); Carbon Dioxide 28 mmol/L (22-29); Chloride 103 mmol/L (98-107); Globulin 3.4 g/dL (1.3-4.6); Glucose 93 mg/dL (65-115); Lipase 11 U/L (13-60); Magnesium 1.8 mg/dL (1.7-2.3); NT Pro B Type Natriuretic Pept 8851 pg/mL (0-450); Osmolality Calculated 294 mOsm/kg (285-295); Potassium 4.4 mmol/L (3.5-5.1); Sodium 140 mmol/L (136-145); Total Bilirubin 2.9 mg/dL (0.15-1.2); Total Protein 5.9 g/dL (6.6-8.7)
[2022-04-22 13:23] LABS: Lactic Sepsis W/Reflex 4.4 mmol/L (0.5-2.2)
[2022-04-22 13:24] LABS: ABG PCO2 61.5 mmHg (35-45); Alveolar-Arterial Oxygen Gradi 68.5 mmHg (5-10); Arterial Blood Gas Hematocrit 39.7 % (37-47); Base Excess ABG 2.4 mmol/L (-2.0-2.0); Blood Gas Allen Test Pos; Blood Gas Operator Identificat MONRO; Blood Gas Sample Site Radial, right; Blood Gas Sample Type Arterial; Carboxyhemoglobin 1.6 %THgb (0.4-20.1); HCO3 ABG 30.3 mmol/L (22-26); HGB O2 Sat 95.9 % (95-100); Ionized Calcium Level - ABG 1.2 mmol/L (1.1-1.4); Methemoglobin 0.4 % (0.4-1.5); Oxygen Device NRB; Oxygen Saturation ABG 97.8; Potassium Level - ABG 4.1 mmol/L (3.5-5.0)
--- NOTE | 2022-04-22 13:29 | ED_ITS ---
HPI - SOB/Dyspnea General: Chief Complaint: Shortness of Breath/Dyspnea Stated Complaint: SOB Time Seen by Provider: 04/22/22 12:12 History of Present Illness: HPI Narrative: 81-year-old female who comes from a local assisted because of decreased level of consciousness and difficulty breathing. The assisted reported that the patient's been more lethargic over the past 2 days, with decreased p.o. intake. Today she had increased difficulty breathing. Patient is lethargic and unable to provide any history. She has hypoxic, not normally on oxygen. Per EMS, her saturations were in the 70s upon their arrival. They placed her on a nonrebreather and she has become more alert. Patient is a DNR. Review of Systems General: Reports: ROS unobtainable due to mental status PFS ED PFSH: Medical History History of broken collarbone History of tibial fracture Urgency incontinence Surgical History History of foot surgery History of hemorrhoidectomy History of tonsillectomy and adenoidectomy Family History Father , IN HIS LATE 40'S Stroke Heart attack Mother , UNKNOWN AGE Cancer COLON Social History Alcohol intake: current Alcohol intake frequency: holidays/special occasions only Marital status: / Current occupational status: disabled History of recent travel: No Physical Exam Const: OTHER: Patient is lethargic, does not answer questions. She does open her eyes to voice. Speech is incomprehensible. HENMT: OTHER: Mucous membranes are dry Neck/C-Spine: OTHER: Trachea midline Resp: OTHER: Diffuse rhonchi in all lung alcantara, rales in the bases bilaterally. Cardio: OTHER: Tachycardic : OTHER: Diffuse tenderness of the abdomen Neuro: OTHER: Lethargic, confused speech, moves all extremities Course Reevaluation(s): Reevaluation #1: Arterial blood gas does show CO2 retention with a PCO2 of 61.5, pH is 7.301. The patient has been placed on BiPAP. She is resting comfortably. The IV that we had has infiltrated. We are attempting to find ultrasound IV access. I have discussed patient's condition with her son, her POSilvano. The patient is a DNR. He is okay with BiPAP ventilation but does not want any more aggressive ventilation efforts. He is declining central line placement. Consultations: Consultation #1: Discussed with Dr. Witt who agrees with admission Vital Signs: Vital signs: Vital Signs Temperature 98.0 F 04/22/22 12:16 Pulse Rate 104 H 04/22/22 13:45 Respiratory Rate 24 H 04/22/22 13:55 Blood Pressure 151/73 04/22/22 13:55 Pulse Oximetry 95 04/22/22 13:55 Oxygen Delivery Me thod 04/22/22 13:43 Oxygen Flow Rate 15 04/22/22 12:16 Fraction of Inspir ed Oxygen 60 04/22/22 13:43 MDM - SOB/Dyspnea Medical Decision Making 79-year-old female who comes from a local assisted. She presents as altered mental status and increased difficulty breathing. She is placed on a nonrebrea ther, saturations have improved and that she is more alert. She has had an IV placed and IV fluids have been initiated. She has had labs obtained. She does have an elevated lactic acid of 4.4. Her white blood cell count is also elevated at 14.3. On arterial blood gas, pH 7.30, PCO2 61.5, PO2 104. Will initiate the patient on BiPAP. The patient is a DNR so we will not do any further aggressive airway intervention. BUN 5, creatinine 0.9. Bilirubin 2.9, AST 45, ALT is 12. She is negative for influenza. Cefepime 2 g IV as well as vancomycin 1500 mg IV have been ordered for her pneumonia. We will plan for admission to the hospitalist. [facility] Lab Data 04/22/22 12:30 04/22/22 12:30 Labs/Radiology: Radiology Impressions Chest X-Ray 04/22/22 12:16 IMPRESSION: Bilateral pneumonia especially prominent in the right lung. Laboratory Results WBC 14.3 10^3/uL (4.0-10.0) H 04/22/22 12:30 RBC 4.00 10^6/uL (4.1-5.3) L 04/22/22 12:30 Hgb 13.2 g/dL (11.5-15.3) 04/22/22 12: Hct 39.3 % (37.0-47.0) 04/22/22 12: MCV 98.3 fl (81-99) 04/22/22 12:30 MCH 33.0 pg (28.0-34.0) 04/22/22 12:30 MCHC 33.6 g/dL (30.0-36.0) 04/22/22 12:30 RDW 16.1 % (12.1-15.1) H 04/22/22 12:30 Plt Count 135 10^3/cmm (130-400) 04/22/22 12: MPV 9.1 fL (7.4-10.4) 04/22/22 12: Neut % (Auto) 85.4 % 04/22/22 12: Lymph % (Auto) 4.7 % 04/22/22 12: [place] % (Auto) 7.2 % 04/22/22 12:30 Eos % (Auto) 0.1 % 04/22/22 12:30 Baso % (Auto) 0.3 % 04/22/22 12:30 Neut # (Auto) 12.25 10^3/uL (1.8-7.7) H 04/22/22 12:30 Lymph # (Auto) 0.7 10^3/uL (0.8-4.8) L 04/22/22 12:30 [place] # (Auto) 1.0 10^3/uL (0.2-0.9) H 04/22/22 12:30 Eos # (Auto) 0.0 10^3/uL (0.0-0.8) 04/22/22 12:30 Baso # (Auto) 0.0 10^3/uL (0.0-0.1) 04/22/22 12:30 Nucleated RBC % (auto) 0 % 04/22/22 12: Nucleated RBCs # 0.0 /100WBC 04/22/22 12:30 Specimen Type Arterial 04/22/22 13:10 Sample Site Radial, right 04/22/22 13:10 ABG pH 7.30 (7.35-7.45) L 04/22/22 13:10 ABG pCO2 61.5 mmHg (35-45) H* 04/22/22 13:10 ABG pO2 104.0 mmHg (80.0-100.0) H 04/22/22 13:10 ABG HCO3 30.3 mmol/L (22-26) H 04/22/22 13:10 ABG O2 Saturation 97.8 04/22/22 13:10 ABG Base Excess 2.4 mmol/L (-2.0-2.0) H 04/22/22 13:10 Magdiel Test Pos 04/22/22 13:10 A-a O2 Gradient 68.5 mmHg (5-10) H 04/22/22 13:10 Hematocrit 39.7 % (37-47) 04/22/22 13:10 Hgb O2 Saturation 95.9 % (95-100) 04/22/22 13:10 Carboxyhemoglobin 1.6 %THgb (0.4-20.1) 04/22/22 13:10 Methemoglobin 0.4 % (0.4-1.5) 04/22/22 13:10 Total Hemoglobin 13.0 g/dL (12-16) 04/22/22 13:10 Sodium 142.0 mmol/L (131-143) 04/22/22 13:10 Potassium 4.1 mmol/L (3.5-5.0) 04/22/22 13:10 Glucose 91.0 mg/dL (70-115) 04/22/22 13:10 Ionized Calcium 1.2 mmol/L (1.1-1.4) 04/22/22 13:10 O2 Delivery Device Nrb 04/22/22 13:10 O2 Liters/Min 15.0 % 04/22/22 13:10 FiO2 100.0 % 04/22/22 13:10 Campus Receptionist ID Monro 04/22/22 13:10 Sodium 140 mmol/L (136-145) 04/22/22 12:30 Potassium 4.4 mmol/L (3.5-5.1) 04/22/22 12:30 Chloride 103 mmol/L (98-107) 04/22/22 12:30 Carbon Dioxide 28 mmol/L (22-29) 04/22/22 12:30 Anion Gap 13.4 (5-19) 04/22/22 12:30 BUN 25 mg/dL (8-23) H 04/22/22 12:30 Creatinine 0.9 mg/dL (0.5-0.9) 04/22/22 12:30 GFR Calculation Not Reportable 04/22/22 12:30 Glucose 93 mg/dL (65-115) 04/22/22 12:30 POC Glucose 80 mg/dL (70-110) 04/22/22 12:37 Calculated Osmolality 294 mOsm/kg (285-295) 04/22/22 12:30 Lactic Acid 4.4 mmol/L (0.5-2.2) H* 04/22/22 12:30 Calcium 9.0 mg/dL (8.5-10.5) 04/22/22 12:30 Magnesium 1.8 mg/dL (1.7-2.3) 04/22/22 12:30 Total Bilirubin 2.9 mg/dL (0.15-1.2) H 04/22/22 12:30 AST 45 U/L (0-32) H 04/22/22 12:30 ALT 12 U/L (0-33) 04/22/22 12:30 Alkaline Phosphatase 188 U/L (35-105) H 04/22/22 12:30 NT-Pro-B Natriuret Pep 8851 pg/mL (0-450) H 04/22/22 12:30 Total Protein 5.9 g/dL (6.6-8.7) L 04/22/22 12:30 Albumin 2.5 g/dL (3.5-5.2) L 04/22/22 12:30 Globulin 3.4 g/dL (1.3-4.6) 04/22/22 12:30 Lipase 11 U/L (13-60) L 04/22/22 12:30 Influenza Type A Ag negative (Negative) 04/22/22 12:37 Influenza Type B Ag negative (Negative) 04/22/22 12:37 Critical Care Time Critical Care Time: Critical Care Time: Yes Total Critical Care Time: 45 Attestation: total critical care time involved with interviewing the EMS staff as well as the family. Reviewing the assisted notes. Reevaluation and initial assessment of the patient. Ordering and interpreting lab studies as well as x-rays. Discussing with family members and making a plan. Discharge Plan Discharge Patient Disposition: Admitted As Inpatient Clinical Impression: Pneumonia, Sepsis, Respiratory failure Condition: Stable Coding Level of Care Code ED Cupola Tender for Lala Avendano
--- NOTE | 2022-04-22 13:36 | ECG_ITS ---
[facility] Test Date: 2022-04-22 Pat Name: Ary Alba Department: Room: Gender: Female Manager School: : 1940 Requested By: Rachel Castillo Order Number: [id number] Kris MD: Beatriz Segal M.D. Measurements Intervals [place] Rate: 109 P: 0 [place]: 0 QRS: -37 QRSD: 92 T: 30 QT: 342 QTc: 461 Interpretive Statements ATRIAL FLUTTER WITH RAPID VENTRICULAR RESPONSE WITH ABERRANT CONDUCTION OR VENTRICULAR PREMATURE COMPLEXES LEFT AXIS DEVIATION [QRS AXIS < -30] MINIMAL ST DEPRESSION [0.025+ mV ST DEPRESSION] No previous ECG available for comparison Electronically Signed On 04-22-2022 18:08:00 GUNNER'S MATE M by Beatriz Segal M.D. [id number]
[2022-04-22] MEDS: ipratropium-albuterol 3 mL Neb INHALATION ×2 (13:38→22:09)
--- NOTE | 2022-04-22 13:59 | PC.PHAR ---
per coral from [facility] [place] will fax mar
[2022-04-22 14:37] LABS: Reflex Lactate Order REFLEX LACTIC ORDERD
[2022-04-22] MEDS: cefepime 2,000 MG in sodium chloride 0.9% (plus) 50 ML 100 MG IV (14:52)
--- NOTE | 2022-04-22 15:27 | PC.NURSE ---
Report called to ELIZA Bolaños on Med Surg
--- NOTE | 2022-04-22 15:29 | PC.PHAR ---
pt is from [facility]- shanita esquivel from [facility] states the pt had all am meds today-states the pt had a one time dose of lasix 40mg today states it didnt print out on the jul-
[2022-04-22] MEDS: vancomycin 1,500 MG/300 ML PIGGYBACK 200 MG IV (15:32)
[2022-04-22 16:03] LABS: Lactic Acid level (Lactate) 4.1 mmol/L (0.5-2.2)
--- NOTE | 2022-04-22 16:29 | PC.NURSE ---
attempted rodgers catheter without success. pt noted to be incontinent of stool. pt cleaned and neris care provided
--- NOTE | 2022-04-22 16:55 | PC.NURSE ---
1615 Patient recieved from ER placed on BiPap patient eyes open following some simple commands vital signs obtained and placed on continious pulse ox. 1635 rodgers catheter 16 fr placed per 1 attempt per aspectic technique. Balloon inflated with 10cc sterile saline. obtained 350 ml of dark bloody clotted foul urine sample sent to lab. patient live well
[2022-04-22 17:20] LABS: Protein Urine 2+ (Negative); Specific Gravity, Urine 1.015 (1.005-1.030); Urine Appearance Bloody (CLEAR); Urine Color Red (Yellow); pH Urine 7 (5-7)
[2022-04-22 17:21] LABS: Add Urine Microscopic? YES; Bacteria Urine 4+ /hpf; Bilirubin Urine Neg (Negative); Blood Urine 3+ (Negative); Glucose Urine UA Norm (Normal); Ketones Urine Negative (Negative); Leukocyte Esterase Urine 2+ (Negative); Nitrate Urine Negative (Negative); RBC Urine TOO NUMEROUS TO CNT /hpf (0-2); Squamous Epithelial Cell Urine 0-4 /hpf (0-5); Urobilinogen Urine 1 mg/dL (Negative); WBC Urine 0-4 /hpf (0-5)
[2022-04-22 17:22] LABS: Add Urine Culture? Yes
[2022-04-22 17:50] LABS: Adenovirus Not Detected (NOT DETECT); Chlamydia Pneumoniae Not Detected (NOT DETECT); Coronavirus 229E,HKU1,NL63,OC4 Not Detected (NOT DETECT); Human Metapneumovirus Not Detected (NOT DETECT); Human Rhinovirus/Enterovirus Not Detected (NOT DETECT); Influenza A Not Detected (NOT DETECT); Influenza A H1 Not Detected (NOT DETECT); Influenza A H1-2009 Not Detected (NOT DETECT); Influenza A H3 Not Detected (NOT DETECT); Influenza B Not Detected (NOT DETECT); Mycoplasma Pneumoniae Not Detected (NOT DETECT); Parainfluenza Virus Type 1 Not Detected (NOT DETECT); Parainfluenza Virus Type 2 Not Detected (NOT DETECT); Parainfluenza Virus Type 3 Not Detected (NOT DETECT); Parainfluenza Virus Type 4 Not Detected (NOT DETECT); Respiratory Syncytial Virus A Not Detected (NOT DETECT); Respiratory Syncytial Virus B Not Detected (NOT DETECT); SARS-COV-2 Not Detected (NOT DETECT)
--- NOTE | 2022-04-22 18:31 | PM.HP ---
Providers/Chief Complaint Admitting Physician: Marli Witt MD Primary Care Provider: Emory Vaughan MD Chief Complaint: SOB History of Present Illness Ary Alba is a 81 year old female sent from [facility] with acute hypoxic respiratory failure with 02 sat 70% on room air. not much histry available from patient as sh is currently obtunded and on Bipap. Reportedly she has had cough, dyspnea, fever at the [place] ove rthe past 4-5 days. Review of Systems General: Reports: ROS unobtainable due to medical condition Medications/Allergies Home Medications Medication Instructions Recorded Confirmed Last Taken Type aspirin 81 mg tablet,delayed 81 mg PO DAILY@01/29/21 04/22/22 04/22/22 07:30 History release (Adult Aspirin Regimen) betamethasone dipropionate 0.05 % 1 applic topical DAILY PRN Rash 01/29/21 04/22/22 Unknown History topical cream pentoxifylline 400 mg 400 mg PO BID@,01/29/21 04/22/22 04/22/22 07:30 History tablet,extended release famotidine 20 mg tablet 20 mg PO DAILY@02/18/21 04/22/22 04/22/22 07:30 History cetirizine 10 mg tablet (Zyrtec) 5 mg PO DAILY@03/18/21 04/22/22 04/22/22 History ketoconazole 2 % topical cream 1 applic topical Q12H PRN yeast 03/18/21 04/22/22 Unknown History naproxen sodium 220 mg tablet (All 220 mg PO BID@03/18/21 04/22/22 04/22/22 07:30 History Day Relief) acetaminophen 325 mg tablet 650 mg PO Q4H PRN Pain 04/22/22 04/22/22 04/22/22 History (Tylenol) alprazolam 0.25 mg tablet (Xanax) 0.25 mg PO Q6H PRN Anxiety 04/22/22 04/22/22 Unknown History bisacodyl 10 mg rectal suppository 10 mg TN DAILY PRN Constipation 04/22/22 04/22/22 Unknown History furosemide 40 mg tablet (Lasix) 40 mg PO .ONE TIME DOSE TODAY 04/22/22 04/22/22 04/22/22 History magnesium hydroxide 400 mg/5 mL 30 ml PO DAILY PRN Constipation 04/22/22 04/22/22 Unknown History oral suspension (Milk of Magnesia) mirtazapine 15 mg tablet (Remeron) 15 mg PO DAILY@17 04/22/22 04/22/22 04/21/22 History ondansetron HCl 4 mg tablet 4 mg PO Q4H PRN Nausea And Vomiting 04/22/22 04/22/22 Unknown History polyethylene glycol 3350 17 gram 17 g PO DAILY@07 04/22/22 04/22/22 04/22/22 07:30 History oral powder packet (Miralax) sertraline 50 mg tablet (Zoloft) 50 mg PO DAILY@07 04/22/22 04/22/22 04/22/22 History sodium phosphates 19 gram-7 118 ml TN DAILY PRN Constipation 04/22/22 04/22/22 Unknown History gram/118 mL enema (Cngbp-Tk-Hts Enema) Allergies Allergy/AdvReac Type Severity Reaction Status Date / Time lanolin Allergy Unknown Verified 05/30/21 12:22 ACROGEL Allergy ANAPHYLAXIS Uncoded 05/30/21 12:22 PFSH Acute PFSH: Medical History History of broken collarbone History of tibial fracture Urgency incontinence Surgical History History of foot surgery History of hemorrhoidectomy History of tonsillectomy and adenoidectomy Family History Father , IN HIS LATE 40'S Stroke Heart attack Mother , UNKNOWN AGE Cancer COLON Social History Alcohol intake: current Alcohol intake frequency: holidays/special occasions only Marital status: / Current occupational status: disabled History of recent travel: No Vitals/I&O/Wt Last Vital Signs Temp 98.0 F 04/22/22 12:16 Pulse 80 04/22/22 17:21 Resp 23 H 04/22/22 15:50 BP 130/84 04/22/22 15:50 Pulse Ox 99 04/22/22 17:21 O2 Del Method 04/22/22 16:49 O2 Flow Rate 15 04/22/22 12:16 FiO2 60 04/22/22 17:21 Weight last 48 hrs Weight 72.575 kg Physical Exam Narrative: General: on Bipap,, AO x1 HEENT: PERRLA, pupils bilaterally equal and reactive, pallors not present Chest: B/l coarse breath sounds CVS: S1-S2 regular, no murmurs, no tachycardia, no gallops, no rubs Abdomen: Soft, nontender, no organomegaly, bowel sounds present Neuro: No focal deficits, no facial deformity, AO x3, power 5/5 in all limbs Urinary Catheter Management: Iqbal: Cath Placed During This Visit: yes Urinary Catheter Date of Insertion: 04/22/22 Urinary Catheter Time of Insertion: 16:35 Data 04/22/22 12:30 04/22/22 12:30 Micro: Microbiology 04/22/22 12:35 Blood Culture - Preliminary Blood SPECIMEN COLLECTED 04/22/22 12:30 Blood Culture - Preliminary Blood SPECIMEN COLLECTED A&P Assessment and plan (1) Pneumonia: (2) Sepsis: (3) Respiratory failure: (4) Iqbal catheter in place: (5) Nonhealing nonsurgical wound: Plan Admit to med/surg Patient presenting with pneumonia, bilateral chest infiltrates, quickly escalating oxygen requirements, currently on BiPAP ventilation because of hypoxic hypercapnic respiratory failure. Sepsis as a result of same as evidenced by elevated leukocytosis, source of infection, elevated lactate, endorgan failure by way of hypoxia. No fluid boluses suspect additional component of pulmonary edema, elevated BNP at 8000. Check EKG and troponin series Start antibiotic treatment with piperacillin tazobactam and Levaquin for atypical coverage. Check urine bacterial antigen, urine Legionella antigen, sputum culture and gram stain, Positive UA, however from a chronic indwelling Iqbal catheter. DNR/DNI, okay for BiPAP. Attestations Medical Necessity Statement*: Anticipate greater than 2 midnight admission for this Coding Level of Care Code Acute Undertaker Assistant for [facility] Fwd Diagnoses Pneumonia J18.9 Sepsis A41.9 Respiratory failure J96.[address] Z97.8 Nonhealing nonsurgical wound T14.8XXA
[2022-04-22 19:12] LABS: Troponin(5th) Baseline 29 ng/L (0-10)
[2022-04-22] MEDS: enoxaparin 40 mg/0.4 mL Syringe SUBCUT (20:43)
[2022-04-22] MEDS: levofloxacin-dextrose 5 % 750 MG/150 ML PREMIX 100 MG IV (20:44)
[2022-04-22 21:16] LABS: Troponin 5 2HR 31.36 ng/L (0-10)
[2022-04-22 21:19] LABS: Troponin 5 2HR Delta 2.36 ABS# (0-10)
[2022-04-22] MEDS: FUROsemide 10 mg/mL SDV 4mL 40 MG IVP (21:59)
[2022-04-22] MEDS: budesonide 0.5 mg/2 mL Neb INHALATION (22:09)
--- NOTE | 2022-04-22 22:50 | ECG_ITS ---
[facility] Test Date: 2022-04-22 Pat Name: Ary Alba Department: Room: 261 Gender: Female Agricultural Researcher: : 1940 Requested By: Marli Witt Order Number: [id number] Kris MD: Jacey Elizabeth M.D. Measurements Intervals [place] Rate: 117 P: 0 [place]: 0 QRS: 4 QRSD: 80 T: 68 QT: 319 QTc: 447 Interpretive Statements ATRIAL FIBRILLATION WITH RAPID VENTRICULAR RESPONSE WITH ABERRANT CONDUCTION OR VENTRICULAR PREMATURE COMPLEXES POSSIBLE ANTERIOR MYOCARDIAL INFARCTION , PROBABLY OLD [30 ms Q WAVE IN V3/V4, OR R < 0.2 mV IN V4] ABNORMAL RHYTHM ECG Compared to ECG 04/22/2022 13:36:01 Myocardial infarct finding now present Atrial flutter no longer present Left-axis deviation no longer present ST (T wave) deviation no longer present Electronically Signed On 04-23-2022 9:27:07 KNAPSACK SPRAYER by Jacey Elizabeth M.D. [id number]
[2022-04-23] VITALS (49 sets, daily range): BP systolic 97–167; BP diastolic 51–93; PULSE 50–117; RESP 18–53; TEMP 36.6–37.5; O2SAT 71–100
--- NOTE | 2022-04-23 | USCV_ITS ---
Ary Alba Age: 81 Gender: F : 1940 Exam Date: 04/23/2022 02:01 Ordering Phys: Marli Witt MD Technologist: JUANIS Exam Location: [facility] Indication: pulmonary edema, hypoxia, suspect CHF BP: 133 / 84 HR: 95 Rhythm: Atrial fibrillation Technical Quality: Adequate MEASUREMENTS (Male / Female) Normal Values 2D ECHO LV Diastolic Diameter PLAX 3.5 cm 4.2 - 5.9 / 3.9 - 5.3 cm LV Systolic Diameter PLAX 2.2 cm IVS Diastolic Thickness 1.8 cm 0.6 - 1.0 / 0.6 - 0.9 cm IVS Systolic Thickness 2.1 cm LVPW Diastolic Thickness 1.7 cm 0.6 - 1.0 / 0.6 - 0.9 cm LVPW Systolic Thickness 2.1 cm LVOT Diameter 1.8 cm LV Ejection Fraction 2D Teich 68.0 % LV Ejection Fraction MOD 2C 61.4 % LV Ejection Fraction 2C AL 62.7 % LA Diameter 5.1 cm LA Width 5.4 cm LA Height 8.1 cm RA Width 5.0 cm RA Height 4.9 cm Aorta at Sinotubular Diameter 3.1 cm IVC Diameter 2.4 cm M-MODE Aortic Annulus Diameter 3.7 cm LA Ao Ratio MM 1.5 MV E Point Septal Separation 0.3 cm DOPPLER AV Peak Velocity 153.0 cm/s LVOT Peak Velocity 97.0 cm/s AV Area Cont Eq vti 1.6 cm squared AV Area Cont Eq pk 1.5 cm squared MV Area PHT 3.2 cm squared MV E' Velocity 86.0 cm/s Mitral E to MV E' Ratio 10.9 Mitral E to LV E' Lateral Ratio 10.0 Mitral E to LV E' Septal Ratio 12.0 TR Peak Velocity 305.3 cm/s TR Peak Gradient 37.3 mmHg TV Peak E Velocity 55.0 cm/s Right Atrial Pressure 10.0 mmHg Pulmonary Artery Systolic Pressu 47.3 mmHg PV Peak Velocity 158.0 cm/s RV Acceleration Time 0.1 s RV Ejection Time 0.4 s RV AcT/ET 0.3 FINDINGS Left Ventricle Left ventricle is normal in size. LV systolic function is normal with EF of 60 to 65%. No regional wall motion abnormalities are seen. Moderate concentric left ventricular hypertrophy. Right Ventricle Normal in size and function Right Atrium Dilated Left Atrium Dilated. Mitral Valve Moderate mitral annular calcification. Aortic Valve Aortic valve is thickened. No significant stenosis or regurgitation is seen Tricuspid Valve Mild tricuspid regurgitation. RVSP is 40-45mmHg. This is consistent with moderate pulmonary hypertension Pulmonic Valve Not well visualized Pericardium Normal Aorta Normal in size IVC Appears to be dilated. RA pressure is >10mmHg. CONCLUSIONS LV systolic function is normal with EF of 60-65% Moderate concentric left ventricular hypertrophy Biatrial enlargement Mild tricuspid regurgitation. Moderate pulmonary hypertension RA Pressure is elevated. Compared to prior echocardiogram from 2014, no significant changes are seen Maury Willingham MD (Electronically Signed) Final Date: 23 April 2022 17:25 S
[2022-04-23] MEDS: piperacillin-tazobactam 3.375 GM in sodium chloride 0.9% (plus) 50 ML IV ×4 (00:01→23:07)
[2022-04-23] MEDS: ipratropium-albuterol 3 mL Neb INHALATION ×4 (01:27→20:05)
[2022-04-23 02:02] LABS: Basophils % 0.2 %; Hematocrit 37.6 % (37.0-47.0); Hemoglobin 12.5 g/dL (11.5-15.3); Lymphocytes # 0.6 10^3/uL (0.8-4.8); Lymphocytes % 4.4 %; Mean Corpuscular HGB Conc 33.2 g/dL (30.0-36.0); Mean Corpuscular Hemoglobin 32.3 pg (28.0-34.0); Mean Corpuscular Volume 97.2 fl (81-99); Mean Platelet Volume 9.4 fL (7.4-10.4); Monocytes % 6.9 %; Neutrophils # 12.49 10^3/uL (1.8-7.7); Neutrophils % 86.4 %; Nucleated Red Blood Cells % 0 %; Platelet Count 126 10^3/cmm (130-400); Red Blood Count 3.87 10^6/uL (4.1-5.3); Red Cell Distribution Width 16.2 % (12.1-15.1); White Blood Count 14.5 10^3/uL (4.0-10.0)
[2022-04-23 02:25] LABS: Troponin 5 6HR 32.29 ng/L (0-10); Troponin 5 6HR Delta 3.29 ng/L (0-12)
[2022-04-23 02:27] LABS: Alanine Aminotransferase 14 U/L (0-33); Albumin Level 2.2 g/dL (3.5-5.2); Alkaline Phosphatase 164 U/L (35-105); Blood Urea Nitrogen 26 mg/dL (8-23); Calcium 8.8 mg/dL (8.5-10.5); Carbon Dioxide 24 mmol/L (22-29); Chloride 106 mmol/L (98-107); Globulin 3.2 g/dL (1.3-4.6); Glucose 75 mg/dL (65-115); Osmolality Calculated 299 mOsm/kg (285-295); Sodium 143 mmol/L (136-145); Total Bilirubin 2.7 mg/dL (0.15-1.2); Total Protein 5.4 g/dL (6.6-8.7)
[2022-04-23 02:28] LABS: Anion Gap 17.5 (5-19); Potassium 4.5 mmol/L (3.5-5.1)
[2022-04-23 02:29] LABS: Aspartate Amino Transferase 66 U/L (0-32)
--- NOTE | 2022-04-23 04:39 | PC.NURSE ---
This nurse is sitting at patient bedside to maintain oxygen saturation due to patient removing HHF NC and sats dropping to the high 70's to low 80's. The patient is redirecting, but states No! or Oh God! . The patient has been repositioned multiple times in attempt to make her more comfortable, but nothing is helping. At this time the patient will maintain a 1:1
--- NOTE | 2022-04-23 05:54 | PC.NURSE ---
Telephone orders from hospitalist to transport patient to ICU. Report called to ELIZA Hardy. Patient placed on 20 liters NRB mask and transported via bed to ICU room 7.
--- NOTE | 2022-04-23 06:08 | PC.NURSE ---
@0540 pt arrived from DC via hospital bed on 10L nonrebreather w/ continuos pulse ox, and 2 RN's @ bedside. Pt was moved to ICU bed and placed on continuos cardiac/SpO2 monitoring. RT applied high flow NC. Pt is A&Ox1 and unable to follow commands. Pt appears restless and has attempted to remove the NC several times. Current Vitals: HR 109, 96% SpO2, RR 24, 162/93.
[2022-04-23] MEDS: dexmedeTOMIDine 0.9 % NaCL 400 MCG/100 ML PREMIX IV (06:20)
[2022-04-23] MEDS: budesonide 0.5 mg/2 mL Neb INHALATION ×2 (08:18→20:05)
--- NOTE | 2022-04-23 11:36 | PC.CHAP ---
Pastoral Care Encounter/Spiritual Assessment Type of Contact [] Declined clinical trials data coordinator visit [] Patient/Family/Request visit [] Outpatient visit [] Follow-up visit [] Physician referral [] Code/Alert [x] Routine visit [] Staff referral [] Actively dying [] Patient sleeping [] Family support [] [] Out of room [] Palliative care [] [x] Receiving care in room [] Pre-surgical visit [] Trauma [] Long length of stay [x] ICU visit [x] Other: vent Relational/Emotional Strength [] Patient feels connected with others/family/visitors/staff [] Distress [] Loneliness/isolation [] Abandonment Spirituality of Patient [] Person of Maritza [] Attends Jew of their Maritza [] Believes in Prayer [] Reads Bible or Christian materials [] There are Spiritual issues to be addressed [place] Interventions [x] Prayer [] Active listening [] Non-anxious presence [] Spiritual/emotional support [] Crisis/trauma care [] Spiritual counseling [] Bereavement support [] Provided bereavement packet [] Provided Bible/devotional materials [] Provided toy/stuffed animal, coloring book to patient or family member [] Provided Communion [] Anointing/[place] [] Salvation [x] Completed spiritual assessment [] Other: Impact on Illness or Injury [] Angry [] Fearful [] Anxious [] Often cries [] Exhaustion [] Unable to work [] Unable to attend buddhism [] Unable to walk/stand [] Unable to read [] Unable to drive [] Unable to eat/drink [] Unable to sleep [] Unable to be with family [] Patient intubated [] Other: Summary Time spent with patient
--- NOTE | 2022-04-23 14:07 | PC.SLP ---
Orders received, chart reviewed. Two attempts have been made to evaluate the patient for swallowing. She is unable to be awakened to participate in her evaluation. Will continue to monitor and evaluate when the patient is awake enough to fully participate.
[2022-04-23] MEDS: levofloxacin-dextrose 5 % 750 MG/150 ML PREMIX 100 MG IV (17:15)
[2022-04-23] MEDS: enoxaparin 40 mg/0.4 mL Syringe SUBCUT (17:15)
--- NOTE | 2022-04-23 18:00 | USCV_ITS ---
Ary Alba Age: 81 Gender: F : 1940 Exam Date: 04/23/2022 21:14 Ordering Phys: Marli Witt MD Technologist: JUANIS Exam Location: [facility] [place] Indication: evaluate for DVT. Patient is very confused in ICU- 7. No history is available. Legs do not appear edematous or erythematous. HISTORY: evaluate for DVT. Patient is very confused in ICU-7. No history is available. Legs do not appear edematous or erythematous. PROCEDURES: Venous duplex imaging was performed in bilateral lower extremities. The following venous structures were evaluated: common femoral vein, profunda vein, proximal portion of the greater saphenous vein, superficial femoral vein, and the popliteal vein. In addition, the posterior tibial veins were evaluated. Serial compression, augmentation maneuvers, and spectral Doppler flow evaluation were performed, which were normal. Bilaterally, the common femoral, superficial femoral, profunda femoral, popliteal, posterior tibial, and greater saphenous veins were identified and interrogated in the standard fashion. These veins were found to be easily compressible with spontaneous blood flow. No evidence of thrombus noted. 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 No evidence of left lower extremity DVT. 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
--- NOTE | 2022-04-23 18:01 | P.PN_ITS ---
Subjective Subjective: transitioned to heated hi flow today. confused, but tolerating better than bipap. C/o RLE pain. Does not ytpically have pain per granddaugter at bedside . Transferred to ICU overnight fotr precedex drip/ agittaion.. Medications: Reviewed: Yes Vitals/I&O/Wt Last Vital Signs Temp 98.5 F 04/23/22 09:00 Pulse 63 04/23/22 17:04 Resp 24 H 04/23/22 17:04 BP 112/68 04/23/22 16:30 Pulse Ox 95 04/23/22 17:04 O2 Del Method 04/23/22 14:15 O2 Flow Rate 50 04/23/22 17:04 FiO2 85 04/23/22 17:04 04/23/22 04/23/22 04/23/22 06:59 14:59 22:59 Intake Total 110.845 / 1610.845 50 / 50 Output Total 1200 / 1200 Balance -1089.155 / 410.845 50 / 50 Weight last 48 hrs Weight 72.575 kg Physical Exam Narrative: General: No acute distress, AO x1-2, sick appearing HEENT: PERRLA, pupils bilaterally equal and reactive, pallors not present Chest: Normal vesicular breath sounds, no added sounds, equal good air entry bilaterally CVS: S1-S2 regular, no murmurs, no tachycardia, no gallops, no rubs Abdomen: Soft, nontender, no organomegaly, bowel sounds present Neuro: No focal deficits, no facial deformity, AO x3, power 5/5 in all limbs E Urinary Catheter Management: Iqbal: Cath Placed During This Visit: yes Reason for Continuing Indwelling Catheter: Accurate Measurement of Urinary Output in Critically Ill Patients Urinary Catheter Date of Insertion: 04/22/22 Urinary Catheter Time of Insertion: 16:35 Data 04/23/22 01:01 04/23/22 01:01 Micro: Microbiology 04/22/22 12:35 Blood Culture - Preliminary Blood NEGATIVE TO DATE 04/22/22 12:30 Blood Culture - Preliminary Blood NEGATIVE TO DATE 04/22/22 Unknown Urine Culture - Preliminary Urine,Clean Catch Gram Negative Rods 04/22/22 Unknown Legionella Urinary Antigen - Final Urine,Voided Bacterial Antigens - Final A&P Assessment and plan (1) Pneumonia: (2) Sepsis: (3) Respiratory failure: (4) Iqbal catheter in place: (5) Nonhealing nonsurgical wound: Plan Patient presenting with pneumonia, bilateral chest infiltrates, quickly escalating oxygen requirements, currently on BiPAP ventilation because of hypoxic hypercapnic respiratory failure.transitioned to heted hi flow nasal canula Sepsis as a result of same as evidenced by elevated leukocytosis, source of infection, elevated lactate, endorgan failure by way of hypoxia. EKg and tropinin series not suggestive of ACS No fluid boluses suspect additional component of pulmonary edema, elevated BNP at 8000. Start antibiotic treatment with piperacillin tazobactam and Levaquin for atypical coverage. Negative urine bacterial antigen, urine Legionella antigen, sputum culture and gram stain Positive UA, GNR, pending identification DNR/DNI, okay for BiPAP. Attestations Medical Necessity Statement*: continued admission for respiratory support, iv abx Coding Level of Care Code Acute Heavy Equipment Rental Associate for [facility] Fwd Diagnoses Pneumonia J18.9 Sepsis A41.9 Respiratory failure J96.[address] Z97.8 Nonhealing nonsurgical wound T14.8XXA
[2022-04-23] MEDS: morphine 4 mg/mL SDV 1 mL 2 MG IVP ×2 (18:08→23:07)
[2022-04-23] MEDS: FUROsemide 10 mg/mL SDV 2mL 20 MG IVP (18:11)
--- NOTE | 2022-04-23 18:17 | PC.NURSE ---
Pt is more alert this evening. She is responding to simple yes and no questions. Granddaughter at bedside comforting pt. Pt is moaning in pain and shakes her head yes when asked if she is in pain. PRN medication given.
[2022-04-23] MEDS: ketorolac 30 mg/mL INJ 15 MG IVP (21:06)
[2022-04-24] VITALS (45 sets, daily range): BP systolic 112–150; BP diastolic 52–82; PULSE 80–124; RESP 12–40; TEMP 36.4–37; O2SAT 75–98
[2022-04-24] MEDS: ipratropium-albuterol 3 mL Neb INHALATION ×4 (03:14→19:56)
--- NOTE | 2022-04-24 04:00 | XRR_ITS ---
PROCEDURE INFORMATION: Exam: XR Chest Exam date and time: 04/24/2022 4:22 AM Age: 81 years old Clinical indication: Condition or disease; Lung condition and disease; Patient HX: F/u for pneumonia. On heated hi flow. ; Additional info: Follow up infiltrates, pulm edema vs pneumonia TECHNIQUE: Imaging protocol: Radiologic exam of the chest. Views: 1 view. COMPARISON: CR XR chest 1V portable [id number] 04/22/2022 1:28 PM FINDINGS: Lungs: Multifocal patchy airspace opacities without significant change. Pleural spaces: Small pleural effusion suspected. Negative for pneumothorax. Heart/Mediastinum: Moderate cardiomegaly. Bones/joints: Unremarkable. XR/XR chest 1V portable [id number] IMPRESSION: Multifocal airspace disease similar to comparison imaging. Nonspecific features. Atypical pulmonary edema or multifocal pneumonia are in the differential, as well as other nonspecific pneumonitis pathology.
[2022-04-24] MEDS: morphine 4 mg/mL SDV 1 mL 2 MG IVP (06:56)
[2022-04-24] MEDS: piperacillin-tazobactam 3.375 GM in sodium chloride 0.9% (plus) 50 ML IV ×3 (07:05→23:43)
--- NOTE | 2022-04-24 07:08 | PC.NURSE ---
Patient complained of pain through the night. PRN morphine admin q4hrs and a one time dose of toradol received. 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 JOSELITOOA also reports not to give information to LUPE the sanchez who has been on the unit. She is not to stay overnight but can visit. Do not release information to her. She has a history of videoing patient care and it is believed she has done that on the unit per Iris KAY.
[2022-04-24 07:25] LABS: Basophils % 0.2 %; Hematocrit 40.7 % (37.0-47.0); Hemoglobin 13.5 g/dL (11.5-15.3); Lymphocytes % 6.7 %; Mean Corpuscular HGB Conc 33.2 g/dL (30.0-36.0); Mean Corpuscular Hemoglobin 32.5 pg (28.0-34.0); Mean Corpuscular Volume 98.1 fl (81-99); Monocytes # 0.9 10^3/uL (0.2-0.9); Monocytes % 6.1 %; Neutrophils % 85.6 %; Nucleated Red Blood Cells % 0 %; Platelet Count 158 10^3/cmm (130-400); Red Blood Count 4.15 10^6/uL (4.1-5.3); Red Cell Distribution Width 16.5 % (12.1-15.1); White Blood Count 15.2 10^3/uL (4.0-10.0)
[2022-04-24 07:44] LABS: Alanine Aminotransferase 19 U/L (0-33); Albumin Level 2.2 g/dL (3.5-5.2); Alkaline Phosphatase 152 U/L (35-105); Blood Urea Nitrogen 36 mg/dL (8-23); Calcium 9.1 mg/dL (8.5-10.5); Carbon Dioxide 28 mmol/L (22-29); Chloride 108 mmol/L (98-107); Glucose 83 mg/dL (65-115); Osmolality Calculated 311 mOsm/kg (285-295); Sodium 147 mmol/L (136-145); Total Protein 5.2 g/dL (6.6-8.7)
[2022-04-24 07:53] LABS: Anion Gap 15.7 (5-19); Aspartate Amino Transferase 94 U/L (0-32); Potassium 4.7 mmol/L (3.5-5.1)
[2022-04-24] MEDS: budesonide 0.5 mg/2 mL Neb INHALATION ×2 (08:37→19:56)
[2022-04-24] MEDS: pantoprazole 40 mg SDV IVP (11:53)
--- NOTE | 2022-04-24 12:40 | PC.CHAP ---
Pastoral Care Encounter/Spiritual Assessment Type of Contact [] Declined step down nurse visit [] Patient/Family/Request visit [] Outpatient visit [] Follow-up visit [] Physician referral [] Code/Alert [x] Routine visit [] Staff referral [] Actively dying [] Patient sleeping [x] Family support [] [] Out of room [] Palliative care [] [] Receiving care in room [] Pre-surgical visit [] Trauma [] Long length of stay [x] ICU visit [] Other:oxg Relational/Emotional Strength [] Patient feels connected with others/family/visitors/staff [] Distress [] Loneliness/isolation [] Abandonment Spirituality of Patient [] Person of Maritza [] Attends Denominational of their Maritza [] Believes in Prayer [] Reads Bible or Islam materials [] There are Spiritual issues to be addressed General Inspector Interventions [x] Prayer [] Active listening [] Non-anxious presence [] Spiritual/emotional support [] Crisis/trauma care [] Spiritual counseling [] Bereavement support [] Provided bereavement packet [] Provided Bible/devotional materials [] Provided toy/stuffed animal, coloring book to patient or family member [] Provided Communion [] Anointing/[place] [] Salvation [x] Completed spiritual assessment [] Other: Impact on Illness or Injury [] Angry [] Fearful [] Anxious [] Often cries [] Exhaustion [] Unable to work [] Unable to attend adventist [] Unable to walk/stand [] Unable to read [] Unable to drive [] Unable to eat/drink [] Unable to sleep [] Unable to be with family [] Patient intubated [] Other: Summary Time spent with patient
--- NOTE | 2022-04-24 14:10 | PC.NURSE ---
Attempted to transfer patient to CT for ordered scans. When patient was taken off Bipap and placed on NRB for transfer O2 sat dropped to 76% and her heart rate increased into the 120s. Patient was placed back on Bipap. Vitals stabilized. Dr. Witt notified. Orders to hold CT scans until patient is more stable.
[2022-04-24 14:19] LABS: ABG PCO2 54.1 mmHg (35-45); ABG PH Result 7.34 (7.35-7.45); Alveolar-Arterial Oxygen Gradi 49.7 mmHg (5-10); Arterial Blood Gas Hematocrit 38.4 % (37-47); Base Excess ABG 2.1 mmol/L (-2.0-2.0); Blood Gas Allen Test Pos; Blood Gas Operator Identificat CAK; Blood Gas Sample Site Radial, left; Blood Gas Sample Type Arterial; Carboxyhemoglobin 1.1 %THgb (0.4-20.1); HGB O2 Sat 86.8 % (95-100); Ionized Calcium Level - ABG 1.3 mmol/L (1.1-1.4); Methemoglobin 0.6 % (0.4-1.5); Oxygen Device BIPAP; Oxygen Saturation ABG 88.3; Potassium Level - ABG 4.1 mmol/L (3.5-5.0); Total Hemoglobin 12.5 g/dL (12-16)
[2022-04-24] MEDS: FUROsemide 10 mg/mL SDV 4mL 40 MG IVP (15:46)
--- NOTE | 2022-04-24 16:47 | P.PN_ITS ---
Subjective Subjective: Patient is worsened today. She is more lethargic more drowsy. Oxygen saturation 85% on oxygen mask. Needed to be placed back on heated high flow and then BiPAP. She is only moaning, not following any commands today. Developing ALY with worsening creatinine at 1.2 today. Failed swallow evalua tion today because of her mental status. She did receive a few doses of morphine yesterday for pain in her legs. Medications: Reviewed: Yes Vitals/I&O/Wt Last Vital Signs Temp 98.6 F 04/24/22 08:00 Pulse 113 H 04/24/22 15:50 Resp 23 H 04/24/22 14:00 BP 150/77 04/24/22 12:00 Pulse Ox 95 04/24/22 15:50 O2 Del Method 04/24/22 14:00 O2 Flow Rate 50 04/24/22 08:40 FiO2 70 04/24/22 15:50 04/24/22 04/24/22 04/24/22 06:59 14:59 22:59 Intake Total 50 / 326.136 50 / 50 Output Total 175 / 600 50 / 50 Balance -125 / -273.864 0 / 0 Physical Exam Narrative: General: Patient moaning and groaning, more lethargic compared to prior exam. Opens her eyes but does not make any meaningful movements or appropriately answer any questions. HEENT: PERRLA, pupils bilaterally equal and reactive, pallors not present Chest: Bilateral coarse crackles to auscultation CVS: S1-S2 regular, no murmurs, no tachycardia, no gallops, no rubs Abdomen: Soft, nontender, nondistended, bowel sounds present Neuro: Restless, moving all 4 extremities while laying in bed though not to command. Urinary Catheter Management: Iqbal: Cath Placed During This Visit: yes Reason for Continuing Indwelling Catheter: Accurate Measurement of Urinary Output in Critically Ill Patients Urinary Catheter Date of Insertion: 04/22/22 Urinary Catheter Time of Insertion: 16:35 Data 04/24/22 07:01 04/24/22 07:01 Micro: Microbiology 04/22/22 12:35 Blood Culture - Preliminary Blood NEGATIVE TO DATE 04/22/22 12:30 Blood Culture - Preliminary Blood NEGATIVE TO DATE A&P Assessment and plan (1) Pneumonia: (2) Sepsis: (3) Respiratory failure: (4) Iqbal catheter in place: (5) Nonhealing nonsurgical wound: Plan Patient presenting with pneumonia, bilateral chest infiltrates, quickly escalating oxygen requirements, currently on BiPAP ventilation because of hypoxic hypercapnic respiratory failure. Sepsis as a result of same as evidenced by elevated leukocytosis, source of infection, elevated lactate, endorgan failure by way of hypoxia. No fluid boluses suspect additional component of pulmonary edema, elevated BNP at 8000. On antibiotic treatment with piperacillin tazobactam and Levaquin for atypical coverage. negative urine bacterial antigen, urine Legionella antigen, pending sputum culture and gram stain, Positive UA, however from a chronic indwelling Iqbal catheter. will follow cx. Patient clinically worsening today. Will obtain CT of her head. Initially mental status changes appear to be related to metabolic encephalopathy, however with interim worsening we will go ahead and perform a CT head. Also will obtain Ct chest abdomen pelvis due to interim worsening chest infiltrates and worsening renal and liver function. DNR/DNI, okay for BiPAP. Attestations Medical Necessity Statement*: continued hopsita;ization for clinical worsening, iv abx, iv diuretics Coding Level of Care Code Acute Corrections Cadet for [facility] Fwd Diagnoses Pneumonia J18.9 Sepsis A41.9 Respiratory failure J96.[address] Z97.8 Nonhealing nonsurgical wound T14.8XXA
[2022-04-24] MEDS: enoxaparin 40 mg/0.4 mL Syringe SUBCUT (18:05)
[2022-04-24] MEDS: levofloxacin-dextrose 5 % 750 MG/150 ML PREMIX 100 MG IV (18:05)
[2022-04-25] VITALS (45 sets, daily range): BP systolic 67–158; BP diastolic 39–85; PULSE 83–133; RESP 13–44; TEMP 36.4–37.2; O2SAT 82–98
[2022-04-25] MEDS: morphine 4 mg/mL SDV 1 mL 2 MG IVP ×3 (00:44→21:51)
--- NOTE | 2022-04-25 01:22 | PC.NURSE ---
Patient consistently moans and exhibits restlessness. Is unable to vocalize pain location but continues to try and adjust legs as previous night. One time dose for morphine received. Patient's heart rate has remained tachy into the 140s. Patient has been adjusted in bed frequently and attempts to create arm board to prevent occlusion have been successful. After morphine patient continues to moan and cry out but heart rate has returned to the low 100s.
[2022-04-25] MEDS: ipratropium-albuterol 3 mL Neb INHALATION ×4 (01:59→20:27)
[2022-04-25 04:26] LABS: ABG PH Result 7.29 (7.35-7.45); Arterial Blood Gas Hematocrit 33.9 % (37-47); Base Excess ABG -0.3 mmol/L (-2.0-2.0); Blood Gas Operator Identificat JB; Blood Gas Sample Site Brachial, right; Blood Gas Sample Type Arterial; HCO3 ABG 27.1 mmol/L (22-26); Oxygen Device BIPAP; PO2 ABG 57.9 mmHg (80.0-100.0)
[2022-04-25 04:33] LABS: Glucose Point of Care 55 mg/dL (70-110)
[2022-04-25] MEDS: dextrose 50% syringe 50 mL IVP (04:39)
--- NOTE | 2022-04-25 04:53 | PC.NURSE ---
POC Blood glucose of 55 reported to Hospitalist. Order for Amp of D50 received.
[2022-04-25 05:30] LABS: Basophils # 0.1 10^3/uL (0.0-0.1); Basophils % 0.3 %; Hematocrit 33.2 % (37.0-47.0); Hemoglobin 10.7 g/dL (11.5-15.3); Lymphocytes # 0.8 10^3/uL (0.8-4.8); Lymphocytes % 4.5 %; Mean Corpuscular HGB Conc 32.2 g/dL (30.0-36.0); Mean Corpuscular Hemoglobin 32.6 pg (28.0-34.0); Mean Corpuscular Volume 101.2 fl (81-99); Mean Platelet Volume 10.1 fL (7.4-10.4); Neutrophils # 14.79 10^3/uL (1.8-7.7); Neutrophils % 86.8 %; Nucleated Red Blood Cells % 0.1 %; Platelet Count 105 10^3/cmm (130-400); Red Blood Count 3.28 10^6/uL (4.1-5.3); Red Cell Distribution Width 17.1 % (12.1-15.1)
[2022-04-25 05:40] LABS: Glucose Point of Care 100 mg/dL (70-110)
[2022-04-25 05:40] LABS: Alanine Aminotransferase 27 U/L (0-33); Albumin Level 1.9 g/dL (3.5-5.2); Alkaline Phosphatase 121 U/L (35-105); Anion Gap 17.5 (5-19); Aspartate Amino Transferase 117 U/L (0-32); Blood Urea Nitrogen 48 mg/dL (8-23); Carbon Dioxide 25 mmol/L (22-29); Chloride 110 mmol/L (98-107); Globulin 2.9 g/dL (1.3-4.6); Glucose 57 mg/dL (65-115); Osmolality Calculated 316 mOsm/kg (285-295); Potassium 4.5 mmol/L (3.5-5.1); Sodium 148 mmol/L (136-145); Total Bilirubin 1.9 mg/dL (0.15-1.2); Total Protein 4.8 g/dL (6.6-8.7)
[2022-04-25] MEDS: piperacillin-tazobactam 3.375 GM in sodium chloride 0.9% (plus) 50 ML IV (06:52)
[2022-04-25 07:50] LABS: Glucose Point of Care 86 mg/dL (70-110)
[2022-04-25] MEDS: budesonide 0.5 mg/2 mL Neb INHALATION ×2 (08:17→20:27)
[2022-04-25] MEDS: pantoprazole 40 mg SDV IVP (09:28)
--- NOTE | 2022-04-25 09:57 | US_ITS ---
WS: [id number] RENAL ULTRASOUND HISTORY: evaluate for obstruction COMPARISON: None available. TECHNIQUE: 2-D and color Doppler imaging of the kidney submitted. Quality is limited by body habitus. Right kidney: 10.8 cm x 5.3 cm x 5.5 cm. Normal echogenicity with no hydronephrosis or mass. Left kidney: 11.3 cm x 4.7 cm x 4.6 cm. Normal echogenicity with no hydronephrosis or mass. Aorta: Normal. Urinary Bladder: Nondistended. Urinary bladder is catheterized. Gallbladder may be distended. Limited evaluation. US/US renal BI* [id number] IMPRESSION: 1. Suboptimal quality due to body habitus. 2. No renal obstruction. No solid mass identified.
--- NOTE | 2022-04-25 09:58 | PC.SOCIAL ---
Pg 2 IMM Family not at bedside to explain IMM. Left copy at bedside for family to review. Pt is not anticipated to d/c in the next 24-48hrs. Initialed, dated, & timed a copy & placed in chart.
[2022-04-25] MEDS: dextrose 5% 1,000 ML 75 ML IV (10:21)
[2022-04-25 11:13] LABS: D Dimer 6.24 ug/mIFEU (0-0.59)
[2022-04-25] MEDS: meropenem 500 MG in sodium chloride 0.9% (plus) 50 ML 100 MG IV ×2 (11:14→23:08)
[2022-04-25] MEDS: enoxaparin 30 mg/0.3 mL Syringe SUBCUT (17:47)
[2022-04-25 18:00] LABS: Alanine Aminotransferase 34 U/L (0-33); Albumin Level 2.1 g/dL (3.5-5.2); Alkaline Phosphatase 131 U/L (35-105); Anion Gap 17.7 (5-19); Aspartate Amino Transferase 130 U/L (0-32); Blood Urea Nitrogen 53 mg/dL (8-23); Calcium 8.7 mg/dL (8.5-10.5); Carbon Dioxide 26 mmol/L (22-29); Chloride 106 mmol/L (98-107); Globulin 3.2 g/dL (1.3-4.6); Glucose 119 mg/dL (65-115); Osmolality Calculated 316 mOsm/kg (285-295); Potassium 4.7 mmol/L (3.5-5.1); Sodium 145 mmol/L (136-145); Total Bilirubin 2.1 mg/dL (0.15-1.2); Total Protein 5.3 g/dL (6.6-8.7)
--- NOTE | 2022-04-25 18:19 | PC.NURSE ---
Reported low urine output Dr. Witt. Discussed no change in mental status.
--- NOTE | 2022-04-25 19:11 | P.PN_ITS ---
Subjective Subjective: Leukocytosis worsened at 17. Platelet count dropping at 105. Tachycardic between 100 to 120 bpm. Worsening kidney function with creatinine up to 2.3. No urine output overnight. Continues to be lethargic, no meaningful response in conversation, does not follow any commands. Attempts to take of BiPAP resolved in oxygen saturation dropping to 70%. Sodium trending to hypernatremia. Medications: Reviewed: Yes Vitals/I&O/Wt Last Vital Signs Temp 97.6 F 04/25/22 15:00 Pulse 85 04/25/22 18:00 Resp 21 H 04/25/22 18:00 BP 157/85 04/25/22 16:00 Pulse Ox 97 04/25/22 18:00 O2 Del Method 04/25/22 13:25 O2 Flow Rate 50 04/24/22 08:40 FiO2 70 04/25/22 15:26 04/25/22 04/25/22 04/25/22 06:59 14:59 22:59 Intake Total 50 / 300 50 / 50 Output Total 18 / 78 Balance 32 / 222 50 / 50 - Physical Exam Narrative: General: Lethargic, restless, moves around in bed but does not fo llow any commands. HEENT: PERRLA, pupils bilaterally equal and reactive, pallors not present Chest: Coarse crackles to auscultation bilaterally CVS: S1-S2 regular, no murmurs, no tachycardia, no gallops, no rubs Abdomen: Soft, nontender, no organomegaly, bowel sounds present Neuro: No focal deficits, no facial deformity, AO x3, power 5/5 in all limbs Extremities: Healthy surgical dressing present on the right hip, mild tenderness, soft no erythema. Urinary Catheter Management: Iqbal: Cath Placed During This Visit: yes Reason for Continuing Indwelling Catheter: Accurate Measurement of Urinary Output in Critically Ill Patients Urinary Catheter Date of Insertion: 04/22/22 Urinary Catheter Time of Insertion: 16:35 Data 04/25/22 04:20 04/25/22 17:34 Micro: Microbiology 04/24/22 10:10 MRSA Culture - Final Nose 04/22/22 Unknown Urine Culture - Final Urine,Clean Catch Escherichia coli A&P Assessment and plan (1) Pneumonia: (2) Sepsis: (3) Respiratory failure: (4) Iqbal catheter in place: Plan Patient presenting with pneumonia, bilateral chest infiltrates, quickly escalating oxygen requirements, currently on BiPAP ventilation because of hypoxic hypercapnic respiratory failure. Sepsis as a result of same as evidenced by elevated leukocytosis, source of infection, elevated lactate, endorgan failure by way of hypoxia. Chest x-ray showed bilateral gross infiltrates. Which are persisting on serial x-ray imaging from April 24, 2022. Patient has been on treatment with piperacillin tazobactam and levofloxacin since admission. MRSA nares is negative. Urine Legionella and bacterial antigen additionally negative. Sputum culture could not be obtained for further testing. Her urine culture returned positive for E. coli. Which is susceptible to piperacillin tazobactam. Renal ultrasound performed today to rule out obstructive uropathy or obstructive pyelonephritis negative for the same. Attempted to obtain CT of the chest abdomen and pelvis and CT of her head, however patient is too unstable to be moved for CAT scans. Alternate possibility includes ARDS for sepsis though no other source apart from appropriately treated urine infection and pneumonia seem evident at this time. Patient has had no diarrhea, reportedly did not have any abdominal complaints prior to becoming sick. Blood culture remains negative from admission. Leukocytosis is currently increasing. Will change antibiotic coverage to meropenem and levofloxacin. Additionally add vancomycin. Patient did not receive any fluid boluses due to signs of fluid overload including elevated BNP at 8000, bilateral lower extremity edema, concern for CHF. She did receive diuresis with Lasix 40 mg IV every 12, however now her creatinine is trending up to 2.5. We will discontinue diuretics. She has had no urine output overnight and through the day today. COVID and influenza PCR negative from admission. Altered mental status thought to be metabolic encephalopathy from sepsis, hypoxic respiratory failure. CT head unable to be obtained as patient is too unstable to be moved. D-dimer elevated, unable to perform CTA, lower extremity duplex negative. Echocardiogram shows LVEF of 60 to 65%, moderate concentric left ventricular hypertrophy, mild tricuspid regurgitation and moderate pulmonary hypertension, overall unchanged from 2015. The patient's worsening condition, and poor prognosis as a result of her adva nced age and multiorgan failure were discussed with her DPOA Aron Alba. I also discussed with him that given patient's overall worsening, the next steps should we wish to escalate care would be to intubate and mechanically ventilate as patient is impending respiratory fatigue. Additionally if patient continues to have worsening creatinine and poor urine output, CRRT may need to be considered. Patient's son clearly states that patient made her wishes clear not to have any CPR or heroic measures performed. She would want to let nature take its course. Morphine had been discontinued yesterday because of her overall lethargic state and concern for respiratory depression, however after discussion of her goals of care and patient's wishes for comfort, morphine has been placed back for pain control. If patient's condition continues to deteriorate over the next 24 hours, will likely proceed to comfort care management rather than escalate care. Of note patient's granddaughter LUPE has been at bedside visiting her every day. Discussed with Aron that all updates will be provided to Aron Anjali only. While the granddaughter is allowed to visit Ms. Alba, no medical details are to be communicated with her. DNR/DNI, okay for BiPAP.?no escalation of care Attestations Medical Necessity Statement*: Continued ICU care for above defined care. Coding Level of Care Code Acute Senior Telecommunications Specialist for [employer] Fwd Diagnoses Pneumonia J18.9 Sepsis A41.9 Respiratory failure J96.[address] Z97.8
--- NOTE | 2022-04-25 19:25 | USR_ITS ---
PROCEDURE INFORMATION: Exam: US Abdomen, Limited; Right Upper Quadrant Exam date and time: 04/25/2022 8:08 PM Age: 81 years old Clinical indication: Other: Elevated lab work; Abdominal pain; Acute; Additional info: Worsening transminitis, evaluate for cholangitis TECHNIQUE: Imaging protocol: Real time ultrasound of the abdomen with image documentation. Limited exam focused on the right upper quadrant. COMPARISON: US gall bladder [id number] 05/27/2021 7:02 PM FINDINGS: Liver: Normal. No masses. Gallbladder: Severely distended gallbladder measuring 18.8 cm in length. Layering sludge. Multiple echogenic shadowing calculi in the gallbladder and gallbladder neck. The wall thickness is 3.1 mm. Biliary ducts: Common bile duct 8.6 mm. Pancreas: No visible intrahepatic ductal dilatation. Right kidney: Normal. No mass. No hydronephrosis. US/US liver [id number] IMPRESSION: 1. Severely dilated gallbladder with gallstones and minimal gallbladder wall thickening. Acute cholecystitis is not excluded. 2. Mildly dilated common bile duct measuring 8.6 mm. 3. Consider follow-up with MRCP.
[2022-04-25 19:42] LABS: Glucose Point of Care 91 mg/dL (70-110)
[2022-04-25] MEDS: vancomycin 1,000 MG in sodium chloride 0.9% 250 ML 250 MG IV (23:55)
[2022-04-26] VITALS (21 sets, daily range): BP systolic 126–140; BP diastolic 54–87; PULSE 73–102; RESP 14–29; TEMP 36.6; O2SAT 94–99
[2022-04-26] MEDS: dextrose 5% 1,000 ML 75 ML IV (00:06)
[2022-04-26] MEDS: ipratropium-albuterol 3 mL Neb INHALATION ×2 (02:50→07:58)
[2022-04-26 04:18] LABS: Basophils % 0.2 %; Eosinophils % 0.1 %; Hemoglobin 11.6 g/dL (11.5-15.3); Lymphocytes # 1.6 10^3/uL (0.8-4.8); Lymphocytes % 9.1 %; Mean Corpuscular HGB Conc 31.4 g/dL (30.0-36.0); Mean Corpuscular Hemoglobin 32.1 pg (28.0-34.0); Mean Corpuscular Volume 102.5 fl (81-99); Mean Platelet Volume 11.6 fL (7.4-10.4); Monocytes # 0.8 10^3/uL (0.2-0.9); Monocytes % 4.9 %; Neutrophils % 84.3 %; Nucleated Red Blood Cells % 0.2 %; Platelet Count 71 10^3/cmm (130-400); Red Blood Count 3.61 10^6/uL (4.1-5.3); Red Cell Distribution Width 17.5 % (12.1-15.1); White Blood Count 17.1 10^3/uL (4.0-10.0)
[2022-04-26 04:43] LABS: Alanine Aminotransferase 34 U/L (0-33); Albumin Level 2.3 g/dL (3.5-5.2); Alkaline Phosphatase 125 U/L (35-105); Blood Urea Nitrogen 56 mg/dL (8-23); Calcium 8.6 mg/dL (8.5-10.5); Carbon Dioxide 27 mmol/L (22-29); Chloride 106 mmol/L (98-107); Globulin 2.9 g/dL (1.3-4.6); Glucose 126 mg/dL (65-115); Magnesium 1.7 mg/dL (1.7-2.3); Osmolality Calculated 315 mOsm/kg (285-295); Sodium 144 mmol/L (136-145); Total Bilirubin 2.2 mg/dL (0.15-1.2); Total Protein 5.2 g/dL (6.6-8.7)
[2022-04-26 04:44] LABS: Anion Gap 15.8 (5-19); Aspartate Amino Transferase 120 U/L (0-32); Potassium 4.8 mmol/L (3.5-5.1)
[2022-04-26] MEDS: budesonide 0.5 mg/2 mL Neb INHALATION (07:58)
[2022-04-26] MEDS: pantoprazole 40 mg SDV IVP (09:08)
[2022-04-26] MEDS: morphine 4 mg/mL SDV 1 mL IVP ×2 (09:16→09:50)
[2022-04-26] MEDS: LORazepam 2 mg/mL INJ 1 mL IVP ×3 (09:16→11:16)
[2022-04-26] MEDS: morphine 10 mg/0.5 mL oral liq UD SUBLINGUAL (09:37)
--- NOTE | 2022-04-26 09:39 | PC.NURSE ---
Plan of care discussed with Dr. Aguillon on morning rounds. Dr. Aguillon spoke to Aron Alba, patient's son, who made the decision to proceed with comfort care. Orders received. Medications administered per order, see MAR. Nurse stayed at bedside with patient.
--- NOTE | 2022-04-26 11:44 | PC.NURSE ---
received from icu into room 105 via bed.report recieved.pt is comfort care.unarousable.le's mottled.heartrate in 20-30's.o2 sat low 60's.pt appears peaceful.
--- NOTE | 2022-04-26 12:32 | PM.PN ---
Subjective Subjective: - Patient was seen this morning -She is in mild respiratory distress, has at times agonal breathing, nonresponsive, does not respond to sternal rub on 70% BiPAP, minimal urine output overnight -Is not requiring pressor therapy -Blood count in the morning shows a white blood cell count of 17,000, platelet count 71,000, creatinine of 2.8, lactic acid 3, with elevated liver function -Prior physician had a detailed discussion with patient's son about pursuing comfort care if patient's condition does not improve in the next 24 hours -This morning I went over patient's care and case in detail with Aron Herrera patient's healthcare power of [place] attorney, patient's son -I discussed that patient is in acute hypoxic respiratory failure with acute encephalopathy, is nonresponsive with multiorgan failure acute renal failure, evidence of developing shock liver, elevated lactic acid -Etiology is likely acute respiratory distress syndrome with acute renal failure she is on maximal medical therapy -I did offer elevating her care I would recommend intubating her placing on mechanical ventilation starting dialysis -I could consider further imaging her including CT of the head CT chest abdomen pelvis however given her agonal breathing her increased oxygen requirements or BiPAP dependence, she would have a high risk of morbidity and mortality and in attempt to do further imaging -However patient's son tells me that this is against her wishes, and that she never wanted to have aggressive interventions -I have advised her son that she is on maximal medical therapy, and I am worried that given her respiratory status this morning with evidence of respiratory stress agonal breathing, her increased oxygen requirements or tachypnea I am worried that she is suffering, and that medical therapy now has reached its maximal benefit -Patient's son does not want his mom to suffer, he wants her to remain comfortable, he wants us to stop all medical interventions and he does not want to have any aggressive interventions -I discussed the risks and benefits of comfort care, he voiced understanding, all questions answered agreed to proceed -Will proceed with comfort care -He lives down in [place], he tells me that he might not have time to make it up to [place], I asked him if he wanted us to wait until he comes up. But he declined, he wants us to start comfort care right now -Patient was made comfort care this morning, patient's time of was 04/26/2022 at 11:50 AM Vitals/I&O/Wt Last Vital Signs Temp 97.9 F 04/26/22 07:00 Pulse 84 04/26/22 08:00 Resp 16 04/26/22 08:00 BP 140/64 04/26/22 08:00 Pulse Ox 94 04/26/22 08:00 O2 Del Method 04/26/22 08:00 O2 Flow Rate 50 04/24/22 08:40 FiO2 50 04/26/22 08:00 04/25/22 04/26/22 04/26/22 22:59 06:59 14:59 Intake Total 1300 / 1350 Output Total 20 / 45 Balance - 1280 / 1305 Physical Exam Const: EXAM LIMITATIONS: altered mental status GENERAL APPEARANCE: lethargic ORIENTATION/CONSCIOUSNESS: Yes confused, Yes patient obtunded and Yes lethargic; not awake, not oriented to person and not oriented to place Eye: OTHER: Pupils pinpoint, minimally reactive to light Resp: EFFORT & INSPECTION: Yes tachypneic, Yes respiratory distress and Yes uses accessory muscles AUSCULTATION: crackles and wheezes OTHER: At times agonal breathing Cardio: COMMON NORMALS: regular rate, regular rhythm, S1 normal heart sound present and S2 normal heart sound present RATE: regular rate RHYTHM: regular rhythm HEART SOUNDS: S1 normal heart sound present and S2 normal heart sound present GI: COMMON NORMALS: Normal to inspection, nondistended, normoactive bowel sounds present and Soft to palpation PALPATION: Yes Soft to palpation Neuro: SENSORIUM/ORIENTATION: No oriented to person, No oriented to place and Yes lethargic Urinary Catheter Management: Iqbal: Cath Placed During This Visit: yes Reason for Continuing Indwelling Catheter: Accurate Measurement of Urinary Output in Critically Ill Patients Urinary Catheter Date of Insertion: 04/22/22 Urinary Catheter Time of Insertion: 16:35 Data 04/26/22 04:06 04/26/22 04:06 A&P Assessment and plan (1) Pneumonia: (2) Sepsis: (3) Respiratory failure: (4) ARDS (adult respiratory distress syndrome): (5) ARF (acute renal failure): (6) Multiorgan failure: (7) Acute respiratory failure with hypoxia: (8) Acute encephalopathy: (9) Lactic acidosis: Plan Proceeding with comfort care Attestations Medical Necessity Statement*: Patient requires hospitalization for comfort care Coding Level of Care Code Acute Furnace [employer] for g Fwd Diagnoses Pneumonia J18.9 Sepsis A41.9 Respiratory failure J96.90 ARDS (adult respiratory distress syndrome) J80 ARF (acute renal failure) N17.9 Multiorgan failure Acute respiratory failure with hypoxia J96.01 Acute encephalopathy G93.40 Lactic acidosis E87.20
--- NOTE | 2022-04-26 12:37 | PC.NURSE ---
pt at 1150.dr ibrahim,nurse sv,pt's son kyleigh,and robyn valdez.priya. notified.son states he does not know home at this time.post-mortem care done
--- NOTE | 2022-04-26 12:39 | P.DES_ITS ---
Discharge Providers DDS Date of Admission: 04/22/22 14:51 Date Summary Completed: 04/26/22 Attending Provider at Admission: Marli Witt MD Attending Provider at Discharge: Marli Witt MD Primary Care Provider: Emory Vaughan MD DS Diagnoses Hospital Diagnoses (1) Pneumonia: (2) Sepsis: (3) Respiratory failure: (4) ARDS (adult respiratory distress syndrome): (5) ARF (acute renal failure): (6) Multiorgan failure: (7) Acute respiratory failure with hypoxia: (8) Acute encephalopathy: (9) Lactic acidosis: Reason for Visit Reason for Visit SOB Summary Summary Summary: Ary Alba is a 81 year old [place] [facility] [place] respiratory failure with 02 sat 70% on room air, not much history available from patient as she was obtunded and on Bipap. Patient was admitted to [facility], to the ICU, for acute hypoxic respiratory failure, acute respiratory distress syndrome, acute encephalopathy, acute renal failure, multiorgan failure, with pneumonia, sepsis. She was managed with BiPAP therapy PE, broad-spectrum antibiotic therapy and maximal medical therapy, clinically monitored. Despite our efforts, and over 72 hours of medical therapy, patient's mentation did not improve, she remained BiPAP dependent, 70% oxygen, remained nonresponsive, acute renal failure worsening, minimal urine output, developing multiorgan failure. The morning of 04/26/2022, patient had episode of agonal breathing, nonresponsive, on 70% FiO2, minimal urine output, acute renal failure, multiorgan failure, respiratory failure, acute encephalopathy. It was against patient's wishes to pursue aggressive interventions, she was DNR/DNI after discussion with patient's family, patient's healthcare power of immigration attorney Brian Alba patient was made comfort care. Time of 11:50 AM at 04/26/2022, Additional Data Confirmation of as documented by pronouncing clinician: no pulse and no respirations Family: contacted Additional persons at bedside: nursing staff Attending/PCP notified?: I am attending Was code activated?: No Autopsy requested?: No Advance directives?: Yes Hospice patient?: No Discharge Plan Discharge Patient Disposition: Home Condition: Stable Prescriptions: No Action ketoconazole 2 % cream 1 applic topical Q12H PRN (Reason: yeast) Rx Instructions: apply to breast/abdominal folds cetirizine [Zyrtec] 10 mg tablet 5 mg PO DAILY@08 naproxen sodium [All Day Relief] 220 mg tablet 220 mg PO BID@, famotidine 20 mg tablet 20 mg PO DAILY@07 betamethasone dipropionate 0.05 % cream 1 applic topical DAILY PRN (Reason: Rash) aspirin [Adult Aspirin Regimen] 81 mg tablet,delayed release (DR/EC) 81 mg PO DAILY@07 pentoxifylline 400 mg tablet extended release 400 mg PO BID@, Rx Instructions: must administer with a meal/food Lasix 40 mg Tablet 40 mg PO .ONE TIME DOSE TODAY Tylenol 325 mg Tablet 650 mg PO Q4H PRN (Reason: Pain) Miralax 17 gram Powder In Packet 17 g PO DAILY@07 Zofran 4 mg Tablet 4 mg PO Q4H PRN (Reason: Nausea And Vomiting) Xanax 0.25 mg Tablet 0.25 mg PO Q6H PRN (Reason: Anxiety) Milk of Magnesia 400 mg/5 mL Suspension 30 ml PO DAILY PRN (Reason: Constipation) bisacodyl 10 mg Suppository 10 mg SC DAILY PRN (Reason: Constipation) Tgpeq-Sy-Avg Enema 19-7 gram/118 mL Enema 118 ml SC DAILY PRN (Reason: Constipation) Remeron 15 mg Tablet 15 mg PO DAILY@17 Zoloft 50 mg Tablet 50 mg PO DAILY@07 Referrals: Emory Vauhgan MD [Primary Care Provider] - Patient Instructions: Opioid Safety DS Attestations Time Spent in /Discharge Care*: greater than 30 min Quality - AMI: AMI present?: No Quality - Stroke: CVA present?: No Quality - VTE: VTE present?: No Coding Level of Care Code Acute Adjunct Political Science Instructor for [facility] Fwd Diagnoses Pneumonia J18.9 Sepsis A41.9 Respiratory failure J96.90 ARDS (adult respiratory distress syndrome) J80 ARF (acute renal failure) N17.9 Multiorgan failure Acute respiratory failure with hypoxia J96.01 Acute encephalopathy G93.40 Lactic acidosis E87.20
--- NOTE | 2022-04-26 15:45 | PC.NURSE ---
lizzette eller home here to picker tender at [phone]
== END 2022-04-26 15:45 | disposition expired | DRG 698 ==
LOC: ER 14:45 → MEDSURG 15:13 → ICU 04-23 05:33 → CSU 04-26 11:30
PROVIDERS: Admitting Provider Student in an Organized Health Care Education/Training Program; Emergency Provider Emergency Medicine; PCP Family Medicine; Visit Provider Student in an Organized Health Care Education/Training Program
DX: T83.518A Infection and inflammatory reaction due to other urinary catheter, initial encounter (principal); A41.9 Sepsis, unspecified organism; J18.9 Pneumonia, unspecified organism; J80 Acute respiratory distress syndrome; G93.41 Metabolic encephalopathy; K72.00 Acute and subacute hepatic failure without coma; N17.9 Acute kidney failure, unspecified; E87.20 Acidosis, unspecified; Y73.8 Miscellaneous gastroenterology and urology devices associated with adverse incidents, not elsewhere classified; B96.20 Unspecified Escherichia coli [E. coli] as the cause of diseases classified elsewhere; Z66 Do not resuscitate; I27.20 Pulmonary hypertension, unspecified; Z51.5 Encounter for palliative care
CPT/HCPCS: 36415; 36416; 36600; 51702; 71045; 76705; 76770; 80048; 80051; 80053; 81001; 82330; 82803; 82805; 82962; 83605; 83690; 83735; 83880; 84484; 85025; 85378; 86403; 87040; 87077; 87086; 87186; 87449; 87631; 87635; 87641; 87804; 92523; 92610; 93005; 93306; 93970; 94640; 94660; 96365; 96366; 96367; 96372; 99291; C9113; J0692; J1650; J1885; J1940; J1956; J2060; J2185; J2270; J2543; J3370; J7030; J7050; J7070; J7626